=== PATIENT | male | born 1945 | race Caucasian/White ===

== ENCOUNTER 2021-08-05 07:58 | Emergency (ER) | payer OTHER ==
--- OUTSIDE RECORDS SUMMARY | 2021-08-05 08:05 | XMS REPORT | Continuity of Care Document ---
:1945 Author Organization [facility] t Address [address] [place] [address] Care Team Providers Name Role Phone Benjie ORTIZ Primary Care Physician Jocelyne ORTIZ Attending Clinician Hailee SPENCER Attending Clinician Unavailable Catherine ORTIZ M Attending Clinician Wilian OLVERA MD Attending Clinician Gray ORTIZ Attending Clinician Anamaria GALAN Attending Clinician Unavailable Angelia ORTIZ S Attending Clinician Donovan_S_MELVA Attending Clinician Unavailable Mayra_A_AH Attending Clinician Unavailable Wilian OLVERA MD Admitting Clinician WILIAN Admitting Clinician Unavailable Donovan_S_MELVA Admitting Clinician Unavailable Mayra_A_AH Admitting Clinician Unavailable Payers Payer Name Policy Type Policy Number Effective Date Expiration Date [facility] [place] - [id number] 2019 [place] 00:00:00 (MEDICARE REPLACEMENT/ADVANT AGE - HMO) Problems Condition Condition Condition Status Onset Resolution Last Treating Co mments Source Name Details Category Date Date Treatment Clinician Date Periprosth Periprosth Disease Active U vidya etic etic 1-09 ity of fracture fracture 00:00: [place] around around 00 Medical internal 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, Leukemia, 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 00 e Obese Obese Problem Active [place] 4-20 Family 00:00: Practic 00 e Body mass Body Mass Problem Active Rafael camara index 30+ Index 30+ 4-20 Fami ly - obesity - Obesity 00:00: Prac tic 00 e Essential Essential Problem Active Rafael camara hypertensi Hypertensi 4-20 Fa karne on on 00:00: Practic 00 e Chronic Chronic Problem Active Dorothy atrial Atrial 4-20 Family fibrillati Fibrillati 00:00: Pr actic on on 00 e No known No known Disease Unive rs active active ity of problems problems [facility] Allergies, Adverse Reactions, Alerts Allergy Allergy Status Severity Reaction(s) Onset Inactive Treating Comm ents Source Name Type Date Date Clinician Stanley Allergy Active [place] to Family substanc Practic e e NO KNOWN Drug Active Univers ALLERGIE Class ity of S [facility] Social History Social Habit Start Date Stop Date Quantity Comments Source Exposure to Not sure [facility] SARS-CoV-2 (event) Medica l [place] Tobacco use and 2021-07-07 2021-07-07 Never used [facility] exposure 00:00:00 00:00:00 [facility] Sex Ass[birth year] At [birth year] [facility] 00:00:00 00:00:00 [facility] Smoking Status Start Date Stop Date Source Never Smoker [place] [facility] P franck Unknown if ever smoked [facility] Medications Ordered Filled Start Stop Current Ordering Indication Dosage Frequency Signature Comments Components Source Medication Medication Date Date Medication? Clinician (SIG) Name Name tamsulosin Yes .8mg 0.8 mg, Univ ers (FLOMAX) 07-27 Oral, ity of capsule 0.8 15:00: DAILY, [place] 00 First dose Medical (after Branch last modificati on) on 07/27/21 at 0900, Until Discontinu ed, Routine mirtazapine Yes 7.5mg 7.5 mg, Un marine (REMERON) 07-27 Oral, QHS, ity of tablet 7.5 03:00: First dose [place] mg 00 (after Medical last Branch modificati on) on Thu07/26/21 at 2100, Until Discontinu ed, Routine tamsulosin Yes [id number] .8mg Take 2 Univers 0.4 mg 24 1-29 capsules ity of hr capsule 00:00: by mouth [place] 00 daily. Medical Branch risperiDONE 0 Yes .25mg Take 1 Uni vers 0.25 mg -29 tablet by ity of tablet 00:00: mouth [place] 00 every Medical morning. Branch tamsulosin Yes [id number] .8mg Take 2 Univers 0.4 mg 24 -29 capsules ity of hr capsule 00:00: by mouth [place] 00 daily. Medical Branch risperiDONE 0 Yes .25mg Take 1 Uni vers 0.25 mg 1-29 tablet by ity of tablet 00:00: mouth [place] 00 every Medical morning. Branch tamsulosin Yes [id number] .8mg Take 2 Univers 0.4 mg 24 -29 capsules ity of hr capsule 00:00: by mouth [place] 00 daily. Medical Branch risperiDONE Yes .25mg Take 1 Uni vers 0.25 mg -29 tablet by ity of tablet 00:00: mouth [place] 00 every Medical morning. Branch ciprofloxac 2021- Yes 500mg 500 mg, U nivers in HCl 07-27 Oral, ity of (CIPRO) 00:00: 11:59 Q12HA2, 7 [place] tablet 500 00 :00 doses, Medical mg First dose Branch on Thu07/26/21 at 1800, Last dose on Thu07/29/21 at 1800, YAMILKA
Re ason for Anti-Infec tive: Documented Infection< br>Documen judy Infection Site: Urine
D uration of Therapy: 7 days atenoloL 25 2021- No 100mg Take 100 Univers mg tablet 07-26 mg by ity of 15:49: 00:00 mouth at [place] 57 :00 bedtime. Medical Branch mirtazapine 2021- No 15mg 15 mg, Uni vers (REMERON) 07-26 Oral, QHS, ity of tablet 15 03:00: 18:30 First dose [place] mg 00 :08 on [place] Medical 07/25/21 at Branch 2100, Until Discontinu ed, Routine furosemide Yes [id number] 40mg Take 1 Univers 40 mg 1-28 tablet by ity of tablet 00:00: mouth 2 [place] 00 (two) Medical times Branch daily. rivaroxaban Yes [id number] 20mg Take 1 Univ ers 20 mg 1-28 tablet by ity of tablet 00:00: mouth [place] 00 every Medical evening. Branch Indication s: atrial fibrillati on atorvastati Yes [id number] 40mg Take 1 Univers n 40 mg 1-28 tablet by ity of tablet 00:00: mouth at [place] 00 bedtime. Medical Branch finasteride Yes [id number] 5mg Take 1 Univers 5 mg tablet 1-28 tablet by ity of 00:00: mouth [place] 00 daily. Medical Branch metoprolol Yes [id number] 25mg Take 1 Univers succinate 1-28 tablet by ity o f XL 25 mg 24 00:00: mouth [place] hr tablet 00 daily with Medi sree breakfast. Branch lisinopriL Yes [id number] 40mg Take 1 Univers 40 mg 1-28 tablet by ity of tablet 00:00: mouth [place] 00 daily. Medical Branch polyethylen Yes [id number] 17g Take 1 Univers e glycol 1-28 Packet by ity of 3350 17 00:00: mouth 2 [place] gram powder 00 (two) Medical times Branch daily. sennosides Yes [id number] 17.2mg Take 17.2 Univers 17.2 mg Tab 1-28 mg by ity of 00:00: mouth 2 [place] 00 (two) Medical times Branch daily. ciprofloxac Yes 500mg Take 1 Uni vers in HCl 500 1-28 tablet by ity of mg tablet 00:00: mouth [place] 00 every 12 Medical (twelve) Branch hours. mirtazapine Yes [id number] 7.5mg Take 1 Univers 7.5 mg 1-28 tablet by ity of tablet 00:00: mouth at [place] 00 bedtime. Medical Branch risperiDONE Yes .5mg Take 2 Univ ers 0.25 mg 1-28 tablets by ity of tablet 00:00: mouth at [place] 00 bedtime. Medical Branch furosemide Yes [id number] 40mg Take 1 Univers 40 mg 1-28 tablet by ity of tablet 00:00: mouth 2 [place] 00 (two) Medical times Branch daily. rivaroxaban Yes [id number] 20mg Take 1 Univ ers 20 mg 1-28 tablet by ity of tablet 00:00: mouth [place] 00 every Medical evening. Branch Indication s: atrial fibrillati on atorvastati 0 Yes [id number] 40mg Take 1 Univers n 40 mg 1-28 tablet by ity of tablet 00:00: mouth at [place] 00 bedtime. Medical Branch finasteride 0 Yes [id number] 5mg Take 1 Univers 5 mg tablet 1-28 tablet by ity of 00:00: mouth [place] 00 daily. Medical Branch metoprolol Yes [id number] 25mg Take 1 Univers succinate 1-28 tablet by ity o f XL 25 mg 24 00:00: mouth [place] hr tablet 00 daily with Medi sree breakfast. Branch lisinopriL Yes [id number] 40mg Take 1 Univers 40 mg 1-28 tablet by ity of tablet 00:00: mouth [place] 00 daily. Medical Branch polyethylen Yes [id number] 17g Take 1 Univers e glycol 1-28 Packet by ity of 3350 17 00:00: mouth 2 [place] gram powder 00 (two) Medical times Branch daily. sennosides Yes [id number] 17.2mg Take 17.2 Univers 17.2 mg Tab 1-28 mg by ity of 00:00: mouth 2 [place] 00 (two) Medical times Branch daily. ciprofloxac 0 Yes 500mg Take 1 Uni vers in HCl 500 1-28 tablet by ity of mg tablet 00:00: mouth [place] 00 every 12 Medical (twelve) Branch hours. mirtazapine 0 Yes [id number] 7.5mg Take 1 Univers 7.5 mg 1-28 tablet by ity of tablet 00:00: mouth at [place] 00 bedtime. Medical Branch risperiDONE 0 Yes .5mg Take 2 Univ ers 0.25 mg 1-28 tablets by ity of tablet 00:00: mouth at [place] 00 bedtime. Medical Branch furosemide 0 Yes [id number] 40mg Take 1 Univers 40 mg 1-28 tablet by ity of tablet 00:00: mouth 2 [place] 00 (two) Medical times Branch daily. rivaroxaban Yes 1358 20mg Take 1 Univ ers 20 mg 1-28 tablet by ity of tablet 00:00: mouth [place] 00 every Medical evening. Branch Indication s: atrial fibrillati on atorvastati 0 Yes [id number] 40mg Take 1 Univers n 40 mg 1-28 tablet by ity of tablet 00:00: mouth at [place] 00 bedtime. Medical Branch finasteride 0 Yes [id number] 5mg Take 1 Univers 5 mg tablet 1-28 tablet by ity of 00:00: mouth [place] 00 daily. Medical Branch metoprolol Yes [id number] 25mg Take 1 Univers succinate 1-28 tablet by ity o f XL 25 mg 24 00:00: mouth [place] hr tablet 00 daily with Medi sree breakfast. Branch lisinopriL Yes [id number] 40mg Take 1 Univers 40 mg 1-28 tablet by ity of tablet 00:00: mouth [place] 00 daily. Medical Branch polyethylen Yes [id number] 17g Take 1 Univers e glycol 1-28 Packet by ity of 3350 17 00:00: mouth 2 [place] gram powder 00 (two) Medical times Branch daily. sennosides Yes [id number] 17.2mg Take 17.2 Univers 17.2 mg Tab 1-28 mg by ity of 00:00: mouth 2 [place] 00 (two) Medical times Branch daily. ciprofloxac 0 Yes 500mg Take 1 Uni vers in HCl 500 1-28 tablet by ity of mg tablet 00:00: mouth [place] 00 every 12 Medical (twelve) Branch hours. mirtazapine 0 Yes [id number] 7.5mg Take 1 Univers 7.5 mg 1-28 tablet by ity of tablet 00:00: mouth at [place] 00 bedtime. Medical Branch risperiDONE 0 Yes .5mg Take 2 Univ ers 0.25 mg 1-28 tablets by ity of tablet 00:00: mouth at [place] 00 bedtime. Medical Branch acetaminoph 0 2022- Yes [id number] 650mg Take 2 Univers en 325 mg 1-28 -29 tablets by ity of tablet 00:00: 05:59 mouth 3 [place] 00 :00 (three) Medical times Branch daily. acetaminoph 2022- Yes [id number] 650mg Take 2 Univers en 325 mg 07-26 tablets by ity of tablet 00:00: 05:59 mouth 3 [place] 00 :00 (three) Medical times Branch daily. acetaminoph 2022- Yes [id number] 650mg Take 2 Univers en 325 mg 07-26 tablets by ity of tablet 00:00: 05:59 mouth 3 [place] 00 :00 (three) Medical times Branch daily. risperiDONE Yes .25mg [[facility] Start] ity of tablet 0.25 15:00: Name: [place] [id number] risperiDON [facility] (RISPERDAL ) tablet 0.25 mg Signed Summary: 0.25 mg, Oral, QAM, First dose (after last modificati on) on Thu07/25/21 at 0900, Until Discontinu ed, Routine [Order 1 End] [Order 2 Start] Name: risperiDON E (RISPERDAL ) tablet 0.5 mg Signed Summary: 0.5 mg, Oral, QHS, First dose (after last modificati on) on May[place] 07/25/21 at 2100, Until Discontinu ed, Routine [Order 2 End] mirtazapine 2021- No 15mg 15 mg, Uni vers (REMERON) 07-25 Oral, QHS, ity of tablet 15 03:00: 14:55 First dose [place] mg 00 :57 on Thu07/24/21 at Branch 2100, Until Discontinu ed, Routine piperacilli 2021- No 3.375g 3.375 g, Univers n-tazobacta 07-24 IV ity of m (ZOSYN) 00:30: 18:46 Piggyback, [place] 3.375 g in 00 :38 Q6H ABX, Medic al NaCl 0.9% 20 doses, Branc h (NS) 100 mL First dose MINI-BAG on Thu07/23/21 at 1830, Last dose on Thu07/28/21 at 1230, Administer over 30 Minutes, 100 mL
Reas on for Anti-Infec tive: Empiric Therapy for Suspected Infection< br>Empiric Therapy Site: Urine
D uration of therapy: 7 days risperiDONE 2021- No .5mg Unive rs (RISPERDAL) 07-17 ity of tablet 0.5 15:00: 14:55 [place] mg 00 :57 [facility] lactated No 1000mL at 250 Univ ers ringers IV 07-16 mL/hr, ity of infusion 18:30: 19:44 1,000 mL, [place] as 1,000 mL 00 :00 Intravenou Medic al s, ONCE, 1 Branch dose, On [facility] 07/16/21 at 1230, Routine haloperidol No 2mg 2 mg, Slow Univers lactate 07-16 IV Push, ity of (HALDOL) 06:23: 06:33 ONCE, 1 [place] injection 2 00 :00 dose, On Medi sree mg [facility] 07/16/21 at 0030, YAMILKA finasteride Yes 5mg 5 mg, Unive rs (PROSCAR) 07-15 Oral, ity of tablet 5 mg 18:00: DAILY, [place] 00 First dose Medical on [facility] 07/15/21 at 1200, Until Discontinu ed, Routine traMADoL Yes 50mg 50 mg, Univers (ULTRAM) 17 Oral, Q8H, ity o f tablet 50 12:30: First dose [place] mg 00 on [facility] 07/15/21 at Branch 0630, Until Discontinu ed, Routine tamsulosin No .4mg 0.4 mg, Uni vers (FLOMAX) 07-14 Oral, ity of capsule 0.4 17:15: 18:41 DAILY, [place] mg 00 :46 First dose Medical on [facility] 07/14/21 at 1115, Until Discontinu ed, Routine KCL 2021- No 40meq 40 mEq, Univers (KLOR-CON 07-14 Oral, ity of M20) tablet 14:00: 14:46 ONCE, 1 [place] 40 mEq 00 :00 dose, On [facility] 07/14/21 at 0800, Routine magnesium 2021- No 2g 2 g, IV Univ ers sulfate in 07-14 Piggyback, it y of water 2 14:00: 14:45 ONCE, 1 [place] gram/50 mL 00 :00 dose, On Medic al (4 %) Sun Branch infusion 2 07/14/21 at g 0800, Routine magnesium 2021- No 800mg 800 mg, Uni vers oxide 07-13 Oral, BID, ity of (MAG-OX 14:00: 02:03 2 doses, [place] 400) tablet 00 :00 First dose Me dical 800 mg on Sat Branch 07/13/21 at 0800, Last dose on [facility] 07/13/21 at 1999, Routine KCL 2021-2021- No 40meq 40 mEq, Univers (KLOR-CON 07-13 Oral, ity of M20) tablet 14:00: 14:42 ONCE, 1 [place] 40 mEq 00 :00 dose, On Medical Sat Branch 07/13/21 at 0800, Routine QUEtiapine 2021- No 25mg 25 mg, Univ ers (SEROQUEL) 07-13 Oral, QHS, it y of tablet 25 03:00: 16:26 First dose [place] mg 00 :28 on Fri Medical 07/12/21 at Branch 2100, Until Discontinu ed, Routine polyethylen Yes 17g 17 g, Unive rs e glycol 1-15 Oral, BID, ity o f 3350 powder 02:00: First dose [place] 17 g 00 (after Medical last Branch modificati on) on Thu07/12/21 at 1999, Until Discontinu ed, Routine sennosides Yes 17.2mg 17.2 mg, U nivers (SENOKOT) 1-15 Oral, BID, ity of tablet 17.2 02:00: First dose [place] mg 00 (after Medical last Branch modificati on) on Thu07/12/21 at 1999, Until Discontinu ed, Routine KCL 2021- No 40meq 40 mEq, Univers (KLOR-CON 07-12 Oral, ity of M20) tablet 14:15: 15:17 ONCE, 1 [place] 40 mEq 00 :00 dose, On Medical [facility] 07/12/21 at 0815, Routine metoprolol 2021-0 Yes 25mg 25 mg, Unive rs succinate 1-14 Oral, QAM ity o f XL (TOPROL 14:00: WITH [place] XL) tablet 00 BREAKFAST, Med ical 25 mg First dose Branch on Thu07/12/21 at 0800, Until Discontinu ed, Routine metoprolol 2021-0 Yes 25mg 25 mg, Unive rs succinate 1-14 Oral, QAM ity o f XL (TOPROL 14:00: WITH [place] XL) tablet 00 BREAKFAST, Med ical 25 mg First dose Branch on Thu07/12/21 at 0800, Until Discontinu ed, Routine acetaminoph 2021-0 Yes 650mg 650 mg, Un marine en 14 Oral, TID, ity of (TYLENOL) 02:00: First dose [place] tablet 650 00 (after Medical mg last Branch modificati on) on [facility] 07/11/21 at 2000, Until Discontinu ed, Routine sennosides 2021-0 2021- No 8.6mg 8.6 mg, Un marine (SENOKOT) 14 -14 Oral, BID, ity of tablet 8.6 02:00: 14:50 First dose [place] mg 00 :37 on [facility] 07/11/21 at Branch 2000, Until Discontinu ed, Routine rivaroxaban 2021-0 Yes 20mg 20 mg, Univ ers (XARELTO) 1-13 Oral, QPM, ity of tablet 20 23:00: First dose [place] mg 00 on [facility] 07/11/21 at Branch 1700, Until Discontinu ed, Routine rivaroxaban 2021-0 Yes 20mg 20 mg, Univ ers (XARELTO) 1-13 Oral, QPM, ity of tablet 20 23:00: First dose [place] mg 00 on [facility] 07/11/21 at Branch 1700, Until Discontinu ed, Routine atorvastati 2021-0 Yes 40mg 40 mg, Univ ers n (LIPITOR) 1-13 Oral, QHS, it y of tablet 40 03:00: First dose [place] mg 00 on [facility] 07/10/21 at Branch 2100, Until Discontinu ed, Routine atorvastati 2022-0 Yes 40mg 40 mg, Univ ers n (LIPITOR) 1-13 Oral, QHS, it y of tablet 40 03:00: First dose [place] mg 00 on Thu Medical 07/10/21 at Branch 2100, Until Discontinu ed, Routine furosemide Yes 40mg 40 mg, Unive rs (LASIX) 1-13 Oral, BID, ity of tablet 40 02:00: First dose [place] mg 00 (after Medical last Branch modificati on) on Thu07/10/21 at 2000, Until Discontinu ed, Routine furosemide 0 Yes 40mg 40 mg, Unive rs (LASIX) 1-13 Oral, BID, ity of tablet 40 02:00: First dose [place] mg 00 (after Medical last Branch modificati on) on Thu07/10/21 at 2000, Until Discontinu ed, Routine morpHINE Yes 2mg 2 mg, Slow Uni vers injection 2 12 IV Push, ity of mg 21:00: Q6HPRN, [place] 31 Starting Medical on Thu Branch 07/10/21 at 1500, Until Discontinu ed, Routine, For pain unrelieved by oral medication s, or if patient is unable to tolerate oral pain medication . ceFAZolin 2021- No 2000mg 2 g (2,000 Univers in 0.9% 07-10 mg), IV ity of sodium 19:30: 14:37 [place]gyback, [place] chloride 00 :00 Q8H ABX, 3 Medic al (ANCEF) 2 doses, Branch gram/100 mL First dose RTU 2 g on Thu07/10/21 at 1330, Last dose on Thu07/11/21 at 0530, Administer over 30 Minutes
Reason for Anti-Infec tive: Surgical Prophylaxi s
Rodriguez rgical Prophylaxi s: Orthopaedi c
Durat ion of therapy: within 24 hours of surgery FENTanyl PF 2021-2021- No 25ug 25 mcg, Un marine (SUBLIMAZE 07-10 Slow IV ity o f (PF)) 18:20: 19:50 Push, [place] injection 48 :28 Q5MIN PRN, Medi sree 25 mcg 4 doses, Branch Starting on Thu07/10/21 at 1220, Until Thu07/10/21 at 1350, Routine, Pain (scale 4-6), PACU atenoloL 25 0 Yes 100mg Take 100 U nivers mg tablet 1-12 mg by ity of 13:50: mouth at [place] 28 bedtime. Medical Branch sulfur 2021- No [id number] 5mL 5 mL, Univ ers hexafluorid 07-08 Intravenou i ty of e microsphr 18:15: 14:43 s, ONCE, 1 [place] (LUMASON) 00 :00 dose, On Medica l injection 5 [facility] Branch mL 07/08/21 at 1215, Routine
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 approving Restricted medication : PARUL MUSE lisinopriL 0 Yes 40mg 40 mg, Unive rs (PRINIVIL,Z 1-10 Oral, ity of ESTRIL) 15:00: DAILY, [place] tablet 40 00 First dose Medi sree mg on Mon Branch 07/08/21 at 0900, Until Discontinu ed, Routine lisinopriL 0 Yes 40mg 40 mg, Unive rs (PRINIVIL,Z 1-10 Oral, ity of ESTRIL) 15:00: DAILY, [place] tablet 40 00 First dose Medi sree mg on [facility] Branch 07/08/21 at 0900, Until Discontinu ed, Routine atenoloL 2021- No 100mg 100 mg, Univ ers (TENORMIN) 07-08-13 Oral, QHS, it y of tablet 100 03:15: 19:25 First dose [place] mg 00 :33 (after Medical last Branch modificati on) on 07/07/21 at 2115, Until Discontinu ed, Routine spironolact 0 Yes 25mg 25 mg, Univ ers one 1-09 Oral, ity of (ALDACTONE) 15:00: DAILY, [place] tablet 25 00 First dose Medi sree mg on [place] [facility] 07/07/21 at 0900, Until Discontinu ed, Routine spironolact 0 Yes 25mg 25 mg, Univ ers one 1-09 Oral, ity of (ALDACTONE) 15:00: DAILY, [place] tablet 25 00 First dose Medi sree mg on [place] [facility] 07/07/21 at 0900, Until Discontinu ed, Routine amLODIPine 2021- No 2.5mg 2.5 mg, Un marine (NORVASC) 07-07 Oral, ity of tablet 2.5 15:00: 20:47 DAILY, [place] mg 00 :28 First dose Medical on [place] Branch 07/07/21 at 0900, Until Discontinu ed, Routine sennosides- Yes 1{tbl} 1 tablet, [facility] [place] [facility] docusate 07-07 Oral, BID, ity o f sodium 14:00: First dose [place] (SENOKOT-S) 00 on Sun Medica l 8.6-50 mg 07/07/21 at Branc h per tablet 0800, 1 tablet Until Discontinu ed, Routine sennosides- 2021- No 1{tbl} 1 tablet, Univers docusate 07-07 Oral, BID, ity of sodium 14:00: 22:52 First dose [place] (SENOKOT-S) 00 :22 on Sun Medica l 8.6-50 mg 07/07/21 at Branc h per tablet 0800, 1 tablet Until Discontinu ed, Routine enoxaparin 2021- No 30mg 30 mg, Univ ers (LOVENOX) 07-07 Subcutaneo ity of injection 14:00: 20:25 us, Q12H, [place] 30 mg 00 :49 56 doses, Medical First dose Branch on 07/07/21 at 0800, Last dose on 08/03/21 at 2000, Routine furosemide 2021- No 20mg 20 mg, Univ ers (LASIX) 07-07 Oral, BID, ity o f tablet 20 14:00: 21:12 First dose [place] mg 00 :38 on Sun Medical 07/07/21 at Branch 0800, Until Discontinu ed, Routine HYDROcodone Yes 1{tbl} 1 tablet, [facility] Oral, ity of hen (NORCO 11:57: Q4HPRN, [place] 5) 5-325 mg 33 Starting Medi sree tablet 1 on Sun Branch tablet 07/07/21 at 0557, Until Discontinu ed, Routine, Pain (scale 7-10) HYDROcodone 2021-0 Yes 1{tbl} 1 tablet, Univers -acetaminop 07-07 Oral, ity of hen (NORCO 11:57: Q4HPRN, [place] 5) 5-325 mg 33 Starting Medi sree tablet 1 on [place] Branch tablet 07/07/21 at 0557, Until Discontinu ed, Routine, Pain (scale 7-10) traMADoL 2021-0 Yes 50mg 50 mg, Univers (ULTRAM) 07-07 Oral, ity of tablet 50 11:57: Q6HPRN, [place] mg 31 Starting Medical on Sun Branch 07/07/21 at 0557, Until Discontinu ed, Routine, Pain (scale 4-6) traMADoL 2021-0 2021- No 50mg 50 mg, Univer s (ULTRAM) 07-07 Oral, ity of tablet 50 11:57: 12:27 Q6HPRN, [place] mg 31 :24 Starting Medical on [place] Branch 07/07/21 at 0557, Until 07/15/21 at 0627, Routine, Pain (scale 4-6) acetaminoph 2021-0 Yes 650mg 650 mg, Un marine en 07-07 Oral, ity of (TYLENOL) 11:57: Q6HPRN, [place] tablet 650 25 Starting Medic al mg on [place] [facility] 07/07/21 at 0557, Until Discontinu ed, Routine, Pain (scale 1-3), Pain Scale 1-3 Or Headache acetaminoph 2021-0 2021- No 650mg 650 mg, U nivers en 07-07 Oral, ity of (TYLENOL) 11:57: 21:29 Q6HPRN, [place] tablet 650 25 :29 Starting Medic al mg on Sun Branch 07/07/21 at 0557, Until [place] 07/11/21 at 1529, Routine, Pain (scale 1-3), Pain Scale 1-3 Or Headache ondansetron 2021-0 Yes 4mg 4 mg, Slow Univers (ZOFRAN 07-07 IV Push, ity of (PF)) 11:57: Q6HPRN, [place] injection 4 16 Starting Medi sree mg on Sun Branch 07/07/21 at 0557, Until Discontinu ed, Routine, Nausea and Vomiting (N/V) No known No Univers medications -08 ity of 18:44: [place] 05 Medical Branch rivaroxaban 2020-06 Yes 20mg Take 20 mg Univers (XARELTO) 08-05 by mouth ity of 20 mg 00:00: at [place] tablet 00 bedtime. Medical Branch rivaroxaban 2020-06- No 20mg Take 20 mg Univers (XARELTO) 08-05- by mouth ity o f 20 mg 00:00: 00:00 at [place] tablet 00 :00 bedtime. Medical Branch quinapriL 2020-06 Yes 40mg Take 40 mg Un marine 40 mg -19 by mouth ity of tablet 00:00: daily. [place] 00 Medical Branch amLODIPine 2020-06- Yes 2.5mg Take 2.5 U nivers 2.5 mg 1-19 02-18 mg by ity of tablet 00:00: 05:59 mouth [place] 00 :00 daily. Medical Branch spironolact 2020-06- Yes 25mg Take 25 mg Univers one 25 mg -19 -18 by mouth ity o f tablet 00:00: 05:59 daily. [place] 00 :00 Medical Branch amLODIPine 2020-06- Yes 2.5mg Take 2.5 U nivers 2.5 mg -19 02-18 mg by ity of tablet 00:00: 05:59 mouth [place] 00 :00 daily. Medical Branch spironolact 2020-06- Yes 25mg Take 25 mg Univers one 25 mg 19 -18 by mouth ity o f tablet 00:00: 05:59 daily. [place] 00 :00 Medical Branch amLODIPine 2020-06- Yes 2.5mg Take 2.5 U nivers 2.5 mg 1-19 02-18 mg by ity of tablet 00:00: 05:59 mouth [place] 00 :00 daily. Medical Branch spironolact 2020-06- Yes 25mg Take 25 mg Univers one 25 mg -19 -18 by mouth ity o f tablet 00:00: 05:59 daily. [place] 00 :00 Medical Branch amLODIPine 2020-06- Yes 2.5mg Take 2.5 U nivers 2.5 mg 1-19 02-18 mg by ity of tablet 00:00: 05:59 mouth [place] 00 :00 daily. Medical Branch spironolact 2020-06- Yes 25mg Take 25 mg Univers one 25 mg 07-17 by mouth ity o f tablet 00:00: 05:59 daily. [place] 00 :00 Medical Branch quinapriL 2020-06- No 40mg Take 40 mg U nivers 40 mg 07-17 by mouth ity of tablet 00:00: 00:00 daily. [place] 00 :00 Medical Branch furosemide Yes 20mg Take 20 mg U nivers 40 mg 02-21 by mouth 2 ity of tablet 00:00: (two) [place] 00 times Medical daily. Branch furosemide 2021- No 20mg Take 20 mg Univers 40 mg 02-21 by mouth 2 ity of tablet 00:00: 00:00 (two) [place] 00 :00 times Medical daily. Branch amlodipine amlodipine No [address] [facility] 10 mg 10 mg 10 mg Family tablet Take tablet Take tablet Practic 1 tablet 1 tablet Take 1 e every day every day tablet by oral by oral every day route. route. by oral route. atenolol 50 atenolol 50 No 1 Q1D atenolol [place] mg tablet mg tablet 50 mg Fami ly Take 1 Take 1 tablet Practic tablet tablet Take 1 e every day every day tablet by oral by oral every day route. route. by oral route. fluticasone fluticasone No 1spray( Q1D fluticason [place] propionate propionate s) e Fam todd 50 50 propionate Practic mcg/actuati mcg/actuati 50 e on nasal on nasal mcg/actuat spray,suspe spray,suspe ion nasal nsion Guy nsion Guy spray,susp 1 spray 1 spray ension every day every day Guy 1 by by spray intranasal intranasal every day route. route. by intranasal route. quinapril quinapril No [address] [facility] 40 mg 40 mg 40 mg Family tablet Take tablet Take tablet Practic 1 tablet 1 tablet Take 1 e every day every day tablet by oral by oral every day route. route. by oral route. spironolact spironolact No 1 Q1D spironolac [place] one 25 mg one 25 mg tone 25 mg Family tablet Take tablet Take tablet Practic 1 tablet 1 tablet Take 1 e every day every day tablet by oral by oral every day route. route. by oral route. warfarin 1 warfarin 1 No 1 Q1D warfarin 1 [place] mg tablet mg tablet mg tablet Family Take 1 Take 1 Take 1 Practic tablet tablet tablet e every day every day every day by oral by oral by oral route. route. route. warfarin 3 warfarin 3 No 1 Q1D warfarin 3 [place] mg tablet mg tablet mg tablet Family Take 1 Take 1 Take 1 Practic tablet tablet tablet e every day every day every day by oral by oral by oral route. route. route. Immunizations Ordered Filled Immunization Date Status Comments [facility] e Immunization Name Name Influenza High Dose 2020-02-29 Completed Unive rsity of 00:00:00 [facility] Influenza High Dose 2020-02-29 Completed Unive rsity of 00:00:00 [facility] Influenza High Dose 2020-02-29 Completed Unive rsity of 00:00:00 [facility] Influenza High Dose 2020-02-29 Completed Unive rsity of 00:00:00 [facility] Influenza Virus 2019-04-29 Completed Universit y of Vaccine 00:00:00 [facility] Influenza Virus 2019-04-29 Completed Universit y of Vaccine 00:00:00 [facility] Influenza Virus 2019-04-29 Completed Universit y of Vaccine 00:00:00 [facility] Influenza Virus 2019-04-29 Completed Universit y of Vaccine 00:00:00 [facility] influenza, influenza, 2018-06-29 Completed Dorothy Mittal injectable, injectable, 00:00:00 Practice quadrivalent quadrivalent TDAP 2018-03-19 Completed University of 00:00:00 [facility] TDAP 2018-03-19 Completed University of 00:00:00 [facility] TDAP 2018-03-19 Completed University of 00:00:00 [facility] TDAP 2018-03-19 Completed University of 00:00:00 [facility] Influenza High Dose 2017-04-09 Completed Unive rsity of 00:00:00 [facility] Influenza High Dose 2017-04-09 Completed Unive rsity of 00:00:00 [facility] Influenza High Dose 2017-04-09 Completed Unive rsity of 00:00:00 [facility] Influenza High Dose 2017-04-09 Completed Unive rsity of 00:00:00 [facility] Influenza High Dose 2015-05-23 Completed Unive rsity of 00:00:00 [facility] Pneumococcal 2015-05-23 Completed University o f Polysaccharide, 00:00:00 [place] [facility] PPSV23 (PNEUMOVAX) Branch Influenza High Dose 2015-05-23 Completed Unive rsity of 00:00:00 [facility] Branch Pneumococcal 2015-05-23 Completed University o f Polysaccharide, 00:00:00 [place] [facility] PPSV23 (PNEUMOVAX) Branch Influenza High Dose 2015-05-23 Completed Unive rsity of 00:00:00 [facility] Pneumococcal 2015-05-23 Completed University o f Polysaccharide, 00:00:00 [place] [facility] PPSV23 (PNEUMOVAX) Branch Influenza High Dose 2015-05-23 Completed Unive rsity of 00:00:00 [facility] Pneumococcal 2015-05-23 Completed University o f Polysaccharide, 00:00:00 [place] [facility] PPSV23 (PNEUMOVAX) Branch Vital Signs Vital Name Observation Time Observation Value Comments Source Systolic blood 2021-07-26 21:16:00 115 mm[Hg] Univer sity of pressure [facility] Diastolic blood 2021-07-26 21:16:00 76 mm[Hg] Unive rsity of [facility] Heart rate 2021-07-26 21:16:00 94 /min [facility] Body temperature 2021-07-26 21:16:00 35.83 Gladys [facility] Oxygen saturation in 2021-07-26 21:16:00 97 /min [facility] Arterial blood by [facility] Pulse oximetry Branch Respiratory rate 2021-07-26 13:43:00 16 /min [facility] Body weight 2021-07-25 19:00:00 104 kg [facility] BMI 2021-07-25 19:00:00 27.91 kg/m2 [facility] Body height 2021-07-07 14:31:00 193 cm [facility] Systolic blood 2021-07-10 13:14:00 151 mm[Hg] Univer sity of pressure [facility] Diastolic blood 2021-07-10 13:14:00 101 mm[Hg] Unive rsity of pressure [facility] Heart rate 2021-07-10 13:14:00 75 /min [facility] Body temperature 2021-07-10 13:14:00 36.06 Gladys [facility] Respiratory rate 2021-07-10 13:14:00 18 /min [facility] Oxygen saturation in 2021-07-10 13:14:00 95 /min University of Arterial blood by [facility] Pulse oximetry Branch Body height 2021-07-07 14:31:00 193 cm [facility] Body weight 2021-07-07 14:31:00 110 kg [facility] BMI 2021-07-07 14:31:00 29.52 kg/m2 [facility] Systolic blood 2021-07-07 08:00:00 154 mm[Hg] [facility] Diastolic blood 2021-07-07 08:00:00 83 mm[Hg] [facility] Heart rate 2021-07-07 08:00:00 64 /min [facility] Respiratory rate 2021-07-07 08:00:00 25 /min [facility] Oxygen saturation in 2021-07-07 08:00:00 95 /min University of Arterial blood by [facility] Pulse oximetry Branch Body temperature 2021-07-07 00:14:00 36.17 Gladys [facility] Body weight 2021-07-07 00:14:00 113.399 kg [facility] Procedures Procedure Date / Time Performing Clinician Source Performed COVID-19 (ID NOW RAPID 2021-07-26 21:48:00 Anderson Moreno [facility] TESTING) Medical Branch LAB ONLY COVID 2021-07-26 21:48:00 Anderson Moreno [facility] INTERPRETATION [facility] Branch MAGNESIUM 2021-07-24 07:37:00 Jackie Cisneros [facility] BASIC METABOLIC PANEL 2021-07-24 07:37:00 Jackie Cisneros [facility] (NA, K, CL, CO2, GLUCOSE, Medica l Branch BUN, CREATININE, CA) CBC WITH DIFF 2021-07-24 07:37:00 Jackie Cinseros [facility] BASIC METABOLIC PANEL 2021-07-23 23:07:00 [facility] (NA, K, CL, CO2, GLUCOSE, Medica l Branch BUN, CREATININE, CA) URINE CULTURE 2021-07-23 22:24:00 [facility]FF 2021-07-23 20:46:00 Blayne [facility] URINALYSIS 2021-07-23 18:47:00 Blayne [facility] MAGNESIUM 2021-07-22 11:39:00 Blayne [facility] BASIC METABOLIC PANEL 2021-07-22 11:39:00 Blayne [facility] [place] (NA, K, CL, CO2, GLUCOSE, Medica l Branch BUN, CREATININE, CA) CBC WITHOUT DIFF 2021-07-22 11:39:00 Blayne [facility] MAGNESIUM 2021-07-17 11:44:00 Blayne [facility] BASIC METABOLIC PANEL 2021-07-17 11:44:00 Blayne [facility] [place] (NA, K, CL, CO2, GLUCOSE, Medica l Branch BUN, CREATININE, CA) CBC WITHOUT DIFF 2021-07-17 11:44:00 Blayne [facility] MAGNESIUM 2021-07-15 11:52:00 Blayne [facility] BASIC METABOLIC PANEL 2021-07-15 11:52:00 Jackie Cisneros [facility] (NA, K, CL, CO2, GLUCOSE, Medica l Branch BUN, CREATININE, CA) CBC WITHOUT DIFF 2021-07-15 11:52:00 Blayne [facility] MAGNESIUM 2021-07-14 12:30:[address] [facility] BASIC METABOLIC PANEL 2021-07-14 12:30:00 Víctor [facility] (NA, K, CL, CO2, GLUCOSE, Medica l Branch BUN, CREATININE, CA) MAGNESIUM 2021-07-13 11:32:[address] [facility] BASIC METABOLIC PANEL 2021-07-13 11:32:00 Víctor [facility] (NA, K, CL, CO2, GLUCOSE, Medica l Branch BUN, CREATININE, CA) CBC WITH DIFF 2021-07-13 11:32:00 Renee, [facility] MAGNESIUM 2021 11:20:[address] [facility] BASIC METABOLIC PANEL 2021 11:20:00 [facility] (NA, K, CL, CO2, GLUCOSE, Medica l Branch BUN, CREATININE, CA) CBC WITH DIFF 2021 11:20:[address] [facility] CBC WITH DIFF 2021 00:27:00 [facility]OLIC PANEL 2021-07-10 23:55:00 [facility] ([facility], K, CL, CO2, GLUCOSE, Medica l Branch BUN, CREATININE, CA) BASIC METABOLIC PANEL 2021-07-10 23:55:00 Lamberto [facility] (NA, K, CL, CO2, GLUCOSE, Medica l Branch BUN, CREATININE, CA) XR CHEST 1 VW 2021-07-10 20:57:00 [facility]W 2021-07-10 20:57:00 Lamberto [facility] XR FEMUR 2 VW LEFT 2021-07-10 19:13:00 Maday [facility] XR FEMUR 2 VW LEFT 2021-07-10 19:13:00 Maday [facility] FL TIME OR 2021-07-10 17:47:48 Sinan Nassar [facility] (NON-REPORTABLE) Medical Branch FL TIME OR 2021-07-10 17:47:48 Sinan Nassar [facility] (NON-REPORTABLE) Medical Branch FEMUR INTRAMEDULLARY 2021-07-10 14:55:00 Zafar Cedeno [facility] NAILING Medical Branch FEMUR INTRAMEDULLARY 2021-07-10 14:55:00 Zafar Cedeno [facility] NAILING Medical Branch COVID-19 (ID NOW RAPID 2021-07-09 23:43:00 Maday [facility] TESTING) Medical Branch LAB ONLY COVID 2021-07-09 23:43:00 Maday [facility] INTERPRETATION Medical Branch COVID-19 (ID NOW RAPID 2021-07-09 23:43:[facility] LAB ONLY COVID 2021-07-09 23:43:00 Maday [facility] INTERPRETATION Medical Branch BASIC METABOLIC PANEL 2021-07-09 18:56:00 [facility] (NA, K, CL, CO2, GLUCOSE, Medica l Branch BUN, CREATININE, CA) CBC WITH DIFF 2021-07-09 18:56:00 [facility] PROTHROMBIN TIME / INR 2021-07-09 18:56:00 [facility] BASIC METABOLIC PANEL 2021-07-09 18:56:00 [facility] (NA, K, CL, CO2, GLUCOSE, Medica l Branch BUN, CREATININE, CA) CBC WITH DIFF 2021-07-09 18:56:00 [facility] PROTHROMBIN TIME / INR 2021-07-09 18:56:00 [facility] ABORH CONFIRMATION (LAB 2021-07-09 18:55:00 Enrrique Jack [facility] ONLY) Medical Branch ABORH CONFIRMATION (LAB 2021-07-09 18:55:00 Enrrique Jack [facility] ONLY) Medical Branch HB ECG ROUTINE & RHYTHM 2021-07-09 16:08:23 Hickman, [facility] [place] HB ECG ROUTINE & RHYTHM 2021-07-09 16:08:23 Hickman, Rolo [facility] HB ABO GROUPING 2021-07-09 15:30:00 Enrrique Jack [facility] HB ABO GROUPING 2021-07-09 15:30:00 [facility] TRANSTHORACIC ECHO (TTE) 2021-07-08 14:38:00 Myke Orantes [facility] COMPLETE W/ CONTRAST Medical Bra [facility] TRANSTHORACIC ECHO (TTE) 2021-07-08 14:38:00 Myke Orantes [facility] COMPLETE W/ CONTRAST Medical Bra [facility] PROTHROMBIN TIME / INR 2021-07-08 03:00:00 Thanh Mathis [facility] ACTIVATED PARTIAL 2021-07-08 03:00:00 Thanh Mathis [facility] PROTHROMBIN TIME / INR 2021-07-08 03:00:00 Thanh Mathis [facility] ACTIVATED PARTIAL 2021-07-08 03:00[facility] 2021-07-07 12:02:00 Thanh Mathis [facility] CT KNEE LEFT WO CONTRAST 2021-07-07 12:02:00 Thanh Mathis [facility] XR FEMUR 2 VW LEFT 2021-07-07 11:25:00 Thanh Mathis [facility] XR FEMUR 2 VW LEFT 2021-07-07 11:25:00 Thanh Mathis [facility] XR KNEE <3 VW BILATERAL 2021-07-07 03:15:20 Mino Galan [facility] CT HEAD WO CONTRAST 2021-07-07 01:25:52 Mino Galan [facility] XR CHEST 1 VW 2021-07-07 01:09:27 Mino Galan [facility] N-TERMINAL PRO-BNP 2021-07-07 00:52:00 Thanh Mathis [facility] N-TERMINAL PRO-BNP 2021-07-07 00:52:00 Sketchler, Thanh [facility] TROPONIN I 2021-07-07 00:52:00 Mino Galan [facility] COMP. METABOLIC PANEL 2021-07-07 00:52:00 Mino Galan [facility] ([id number]) Medical Branch CBC WITH DIFF 2021-07-07 00:52:00 Mino Galan [facility] URINALYSIS 2021-07-07 00:52:00 Mino Galan [facility] COVID-19 (ID NOW RAPID 2021-07-07 00:52:00 ale [facility] TESTING) Medical Branch EMERGENCY DEPARTMENT 2021-07-06 06:01:00 [facility]assigned, [facility] 2021-07-06 06:01:00 Doctor Unassigned, No [facility] [place] AGREEMENTS AND Name [facility] AUTHORIZATIONS PATIENT QUESTIONNAIRE 2021-07-06 06:01:00 Doctor Unassigned, No [facility] Name [facility] EMERGENCY DEPARTMENT 2021-07-06 06:01:00 Doctor Unassigned, No U niversity [facility] DOCUMENTS Name [facility] EMERGENCY SERVICES 2021-07-06 06:01:00 Doctor Unassigned, No [facility] [place] AGREEMENTS AND Name [facility] AUTHORIZATIONS Encounters Start End Encounter Admission Attending Care Care Encounter Source Date/Time Date/Time Type Type Clinicians Facility Department ID 2021-07-24 [facility] [id number] [facility] [address] 13:44:48 [id number] [place] [facility] 2021-07-30 2021-07-30 Letter KELSI Casanova [id number] Univers 00:00:00 00:00:00 (Out) Anders KRISHNAN [id number] it y of [facility] [id number] Carlos as [id number] [place] [address] Branch 2021-07-29 2021-07-29 Transition BAR Stephen [id number] Univers 00:00:00 00:00:00 of Care Ella PENDLETON [id number] it y of [id number] [id number] [facility] 403 Branch 2021-07-07 2021-07-26 Hospital Aric Alexander [id number] Univers 04:30:00 21:00:00 Encounter Zafar Cedeno [id number] ity of [facility] [id number] [facility] Anders [id number] [facility] 097 Branch 2021-07-10 2021-07-10 Surgery KELSI Cedeno [id number] Univers 09:00:00 11:53:00 Zafar KRISHNAN [id number] it y of [facility] [id number] Carlos as [id number] [facility] 103 Branch 2021-07-06 2021-07-07 Emergency X [facility] ERT [id number] Univers 18:09:00 03:18:00 [facility] 2021-07-06 2021-07-07 Emergency X [facility] ERT [id number] Univers 18:09:00 03:18:00 [facility] 2021-07-06 2021-07-07 [facility] [id number] Univers 18:09:00 03:18:00 [facility] [id number] ity [facility] [id number] [id number] [facility] 084 Branch 2021-02-26 2021-02-26 Outpatient STLMLC [facility]LMLC [id number] [facility] [place] [facility] 2020-12-24 2020-12-24 Outpatient Donovan_SJEY [facility] [address] 02:56:00 02:56:00 [id number] Family Practic e 2020-03-23 2020-03-23 Outpatient Mayra [facility] [address] 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 2019-09-20 2019-09-20 Outpatient [facility]-Shantao VFP P [address] [place] [address] 11:39:00 11:39:00 _A_AH 01549 Family Practic e Results Test Description Test Time Test Comments Results Result Comments Source BASIC METABOLIC PANEL (NA, K, CL, CO2, GLUCOSE, BUN, 2021-06 11:31:40 CREATININE, CA) Test Item Value Reference Range Interpretation Comme nts NA (test code = 8174460941) 135 mmol/L 135-145 K (test code = 3529562875) 4.3 mmol/L 3.5-5.0 CL (test code = 3293302325) 105 mmol/L 98-108 CO2 TOTAL (test code = 9299080773) 22 mmol/L 23-31 L AGAP (test code = 2559842180) 2-16 BUN (test code = 8604448859) 31 mg/dL 7-23 H GLUCOSE (test code = 9041690467) 162 mg/dL 70-110 H CREATININE (test code = 0.67 mg/dL 0.60-1.25 7657593206) CALCIUM (test code = 2379718206) 9.2 mg/dL 8.6-10.6 eGFR (test code = 4414555520) mL/min/1.73m2 DOTTIE (test code = DOTTIE) Association of Glomerular Filtration Rate (GFR) and Staging of Kidney Disease* + +-------- + ------+| GFR (mL/min/1.73 m2) ?| With Kidney Damage ?| ?Without Kidney Damage+ +-- + +| ?>90 ?| ?Stage one ?| ? Normal ?+ +------- + -------+| ?60-89 ?| ?Stage two ?| ? Decreased GFR ? + +-------- + ------+| ?30-59 ?| ?Stage three ?| ? Stage three ? + +-------- + ------+| ?15-29 ?| ?Stage four ? | ? Stage four ?+ +------- + -------+| ?<15 (or dialysis) ? ?| ?Stage five ? | ? Stage five ?+ +------- + -------+ *Each stage assumes the associated GFR level has been in effect for at least three months. ?Stages 1 to 5, with or without kidney disease, indicate chronic kidney disease. Notes: Determination of stages one and two (with eGFR >59mL/min/1.73 m2) requires estimation of kidney damage for at least three months as defined by structural or functional abnormalities of the kidney, manifested by either:Pathological abnormalities or Markers of kidney damage (including abnormalities in the composition of the blood or urine or abnormalities in imaging tests). Lab Interpretation (test code = Abnormal 17634-7) [facility]31[facility]40 Test Item Value Reference Range Interpretation Comments MAGNESIUM (test code = 1151813885) 2.0 mg/dL 1.7-2.4 Lab Interpretation (test code = Normal 92418-6) [facility] WITH [id number] 07:51:51 Test Item Value Reference Range Interpretation Comments WBC (test code = See_Comment H [Automated 7590-2) message] The sy stem which generated this result transmitted reference range : 4.20 - 10.70 10*3/?L. The reference range was not used to interpret this result as normal/abnormal . RBC (test code = See_Comment [Automated 789-8) message] The sy stem which generated this result transmitted reference range : 4.26 - 5.52 10*6/?L. The reference range was not used to interpret this result as normal/abnormal . HGB (test code = 13.6 g/dL 12.2-16.4 718-7) HCT (test code = 39.9 % 38.4-49.3 4544-3) MCV (test code = 88.9 fL 81.7-95.6 787-2) MCH (test code = 30.3 pg 26.1-32.7 785-6) MCHC (test code = 34.1 g/dL 31.2-35.0 786-4) RDW-SD (test code = 42.5 fL 38.5-51.6 68625-1) RDW-CV (test code = 13.2 % 12.1-15.4 788-0) PLT (test code = See_Comment H [Automated 777-3) message] The sy stem which generated this result transmitted reference range : 150 - 328 10*3/ ?L. The reference r tosin was not used to interpret this result as normal/abnormal . MPV (test code = 9.6 fL 9.8-13.0 L 88213-1) NRBC/100 WBC (test See_Comment [Automat ed code = 8473276851) message] The system which generated this result transmitted reference range : 0.0 - 10.0 /100 WBCs. The refer ence range was not u sed to interpret th is result as normal/abnormal . NRBC x10^3 (test code <0.01 See_Comment [Auto mated = 4398865719) message] The s ystem which generated this result transmitted reference range : 10*3/?L. The reference range was not used to interpret this result as normal/abnormal . GRAN MAT (NEUT) % 78.4 % (test code = 770-8) IMM GRAN % (test code 0.70 % = 2101203483) LYMPH % (test code = 6.8 % 736-9) MONO % (test code = 11.4 % 5905-5) EOS % (test code = 2.4 % 713-8) BASO % (test code = 0.3 % 706-2) GRAN MAT x10^3(ANC) 8.93 10*3/uL 1.99-6.95 H (test code = 0988299624) IMM GRAN x10^3 (test 0.08 10*3/uL 0.00-0.06 H code = 3409863148) LYMPH x10^3 (test code 0.77 10*3/uL 1.09-3.23 L = 731-0) MONO x10^3 (test code 1.30 10*3/uL 0.36-1.02 H = 742-7) EOS x10^3 (test code = 0.27 10*3/uL 0.06-0.53 711-2) BASO x10^3 (test code 0.03 10*3/uL 0.01-0.09 = 704-7) Lab Interpretation Abnormal (test code = 69211-3) [facility] METABOLIC PANEL (NA, K, CL, CO2, GLUCOSE, BUN, CREATININE, CA)2021-07-23 23:42:37 Test Item Value Reference Range Interpretation Comments NA (test code = 137 mmol/L 135-145 5199482750) K (test code = 4.1 mmol/L 3.5-5.0 0891917560) CL (test code = 102 mmol/L 98-108 0509501686) CO2 TOTAL (test code = 30 mmol/L 23-31 3243697932) AGAP (test code = 2-16 2890368755) BUN (test code = 29 mg/dL 7-23 H 5665720734) GLUCOSE (test code = 168 mg/dL 70-110 H 6843327571) CREATININE (test code = 0.74 mg/dL 0.60-1.25 9626829819) CALCIUM (test code = 9.0 mg/dL 8.6-10.6 8493659512) eGFR (test code = mL/min/1.73m2 5452969483) DOTTIE (test code = DOTTIE) Association of Glomerular Filtration Rate (GFR) and Staging of Kidney Disease* + --+ --+ ------+| GFR (mL/min/1.73 m2) ?| With Kidney Damage ?| ?Without Kidney Damage+ --------+ --------+ +| ?>90 ?| ?Stage one ?| ? Normal ?+ ---+ ---+ -------+| ?60-89 ?| ?Stage two ?| ? Decreased GFR ? + --+ --+ ------+| ?30-59 ?| ?Stage three ?| ? Stage three ? + --+ --+ ------+| ?15-29 ?| ?Stage four ? | ? Stage four ?+ ---+ ---+ -------+| ?<15 (or dialysis) ? ?| ?Stage five ? | ? Stage five ?+ ---+ ---+ -------+ *Each stage assumes the associated GFR level has been in effect for at least three months. ?Stages 1 to 5, with or without kidney disease, indicate chronic kidney disease. Notes: Determination of stages one and two (with eGFR >59mL/min/1.73 m2) requires estimation of kidney damage for at least three months as defined by structural or functional abnormalities of the kidney, manifested by either:Pathological abnormalities or Markers of kidney damage (including abnormalities in the composition of the blood or urine or abnormalities in imaging tests). Lab Interpretation Abnormal (test code = 32487-5) [facility] WITH [id number] 20:53:35 Test Item Value Reference Range Interpretation Comments WBC (test code = See_Comment H [Automated 6621-2) message] The sy stem which generated this result transmitted reference range : 4.20 - 10.70 10*3/?L. The reference range was not used to interpret this result as normal/abnormal . RBC (test code = See_Comment [Automated 877-8) message] The sy stem which generated this result transmitted reference range : 4.26 - 5.52 10*6/?L. The reference range was not used to interpret this result as normal/abnormal . HGB (test code = 14.8 g/dL 12.2-16.4 718-7) HCT (test code = 43.1 % 38.4-49.3 4544-3) MCV (test code = 89.2 fL 81.7-95.6 787-2) MCH (test code = 30.6 pg 26.1-32.7 785-6) MCHC (test code = 34.3 g/dL 31.2-35.0 786-4) RDW-SD (test code = 43.0 fL 38.5-51.6 10391-6) RDW-CV (test code = 13.2 % 12.1-15.4 788-0) PLT (test code = See_Comment H [Automated 777-3) message] The sy stem which generated this result transmitted reference range : 150 - 328 10*3/ ?L. The reference r tosin was not used to interpret this result as normal/abnormal . MPV (test code = 10.2 fL 9.8-13.0 21431-8) NRBC/100 WBC (test See_Comment [Automat ed code = 9943712669) message] The system which generated this result transmitted reference range : 0.0 - 10.0 /100 WBCs. The refer ence range was not u sed to interpret th is result as normal/abnormal . NRBC x10^3 (test code <0.01 See_Comment [Auto mated = 2094632870) message] The s ystem which generated this result transmitted reference range : 10*3/?L. The reference range was not used to interpret this result as normal/abnormal . GRAN MAT (NEUT) % 78.9 % (test code = 770-8) IMM GRAN % (test code 0.60 % = 4816483844) LYMPH % (test code = 7.1 % 736-9) MONO % (test code = 11.8 % 5905-5) EOS % (test code = 1.1 % 713-8) BASO % (test code = 0.5 % 706-2) GRAN MAT x10^3(ANC) 9.73 10*3/uL 1.99-6.95 H (test code = 8187782650) IMM GRAN x10^3 (test 0.08 10*3/uL 0.00-0.06 H code = 6418892886) LYMPH x10^3 (test code 0.88 10*3/uL 1.09-3.23 L = 731-0) MONO x10^3 (test code 1.46 10*3/uL 0.36-1.02 H = 742-7) EOS x10^3 (test code = 0.13 10*3/uL 0.06-0.53 711-2) BASO x10^3 (test code 0.06 10*3/uL 0.01-0.09 = 704-7) Lab Interpretation Abnormal (test code = 96887-6) [facility] METABOLIC PANEL (NA, K, CL, CO2, GLUCOSE, BUN, CREATININE, CA)2021-07-22 12:35:46 Test Item Value Reference Range Interpretation Comments NA (test code = 136 mmol/L 135-145 7976557589) K (test code = 4.5 mmol/L 3.5-5.0 2942160603) CL (test code = 105 mmol/L 98-108 2795831166) CO2 TOTAL (test code = 23 mmol/L 23-31 6501223377) AGAP (test code = 2-16 2575038723) BUN (test code = 29 mg/dL 7-23 H 8022259427) GLUCOSE (test code = 142 mg/dL 70-110 H 1667914704) CREATININE (test code = 0.66 mg/dL 0.60-1.25 1700038869) CALCIUM (test code = 8.9 mg/dL 8.6-10.6 4040127481) eGFR (test code = mL/min/1.73m2 0991407746) DOTTIE (test code = DOTTIE) Association of Glomerular Filtration Rate (GFR) and Staging of Kidney Disease* + --+ --+ ------+| GFR (mL/min/1.73 m2) ?| With Kidney Damage ?| ?Without Kidney Damage+ --------+ --------+ +| ?>90 ?| ?Stage one ?| ? Normal ?+ ---+ ---+ -------+| ?60-89 ?| ?Stage two ?| ? Decreased GFR ? + --+ --+ ------+| ?30-59 ?| ?Stage three ?| ? Stage three ? + --+ --+ ------+| ?15-29 ?| ?Stage four ? | ? Stage four ?+ ---+ ---+ -------+| ?<15 (or dialysis) ? ?| ?Stage five ? | ? Stage five ?+ ---+ ---+ -------+ *Each stage assumes the associated GFR level has been in effect for at least three months. ?Stages 1 to 5, with or without kidney disease, indicate chronic kidney disease. Notes: Determination of stages one and two (with eGFR >59mL/min/1.73 m2) requires estimation of kidney damage for at least three months as defined by structural or functional abnormalities of the kidney, manifested by either:Pathological abnormalities or Markers of kidney damage (including abnormalities in the composition of the blood or urine or abnormalities in imaging tests). Lab Interpretation Abnormal (test code = 86082-9) [facility] Test Item Value Reference Range Interpretation Comments MAGNESIUM (test code = 8768457262) 2.0 mg/dL 1.7-2.4 Lab Interpretation (test code = Normal 31625-3) [facility] [id number] 12:07:28 Test Item Value Reference Range Interpretation Comments WBC (test code = 6690-2) See_Comment H [A utomated message] The system [employer] generated this result transmit judy reference range : 4.20 - 10.70 10*3/?L. The reference range was not used to interpret this result as normal/abnormal . RBC (test code = 789-8) See_Comment [Au tomated message] The system [employer] generated this result transmit judy reference range : 4.26 - 5.52 10* 6/?L. The reference r tosin was not used to interpret this result as normal/abnormal . HGB (test code = 718-7) 14.4 g/dL 12.2-16.4 HCT (test code = 4544-3) 42.5 % 38.4-49.3 MCH (test code = 785-6) 30.6 pg 26.1-32.7 MCV (test code = 787-2) 90.4 fL 81.7-95.6 MCHC (test code = 786-4) 33.9 g/dL 31.2-35.0 PLT (test code = 777-3) See_Comment H [Au tomated message] The system [employer] generated this result transmit judy reference range : 150 - 328 10*3/?L. The reference range was not used to interpret this result as normal/abnormal . MPV (test code = 9.8 fL 9.8-13.0 26179-9) RDW-CV (test code = 13.2 % 12.1-15.4 788-0) RDW-SD (test code = 43.5 fL 38.5-51.6 12771-7) NRBC x10^3 (test code = <0.01 See_Comment [Au tomated message] 3825661773) The system [employer] generated this result transmit judy reference range : 10*3/?L. The reference range was not used to interpret this result as normal/abnormal . NRBC/100 WBC (test code See_Comment [Au tomated message] = 8306117190) The system [employer] generated this result transmit judy reference range : 0.0 - 10.0 /100 WBC s. The reference r tosin was not used to interpret this result as normal/abnormal . IPF % (test code = 5350997159) Lab Interpretation (test Abnormal code = 68731-7) [facility] (NA, K, CL, CO2, GLUCOSE, BUN, CREATININE, CA)2021-07-17 12:24:49 Test Item Value Reference Range Interpretation Comments NA (test code = 137 mmol/L 135-145 1514610576) K (test code = 4.4 mmol/L 3.5-5.0 9619461200) CL (test code = 103 mmol/L 98-108 3164520296) CO2 TOTAL (test code = 28 mmol/L 23-31 2048139146) AGAP (test code = 2-16 0525454822) BUN (test code = 33 mg/dL 7-23 H 4771938570) GLUCOSE (test code = 141 mg/dL 70-110 H 7746732448) CREATININE (test code = 0.70 mg/dL 0.60-1.25 2149315447) CALCIUM (test code = 8.7 mg/dL 8.6-10.6 6588027693) eGFR (test code = mL/min/1.73m2 4723874565) DOTTIE (test code = DOTTIE) Association of Glomerular Filtration Rate (GFR) and Staging of Kidney Disease* + --+ --+ ------+| GFR (mL/min/1.73 m2) ?| With Kidney Damage ?| ?Without Kidney Damage+ --------+ --------+ +| ?>90 ?| ?Stage one ?| ? Normal ?+ ---+ ---+ -------+| ?60-89 ?| ?Stage two ?| ? Decreased GFR ? + --+ --+ ------+| ?30-59 ?| ?Stage three ?| ? Stage three ? + --+ --+ ------+| ?15-29 ?| ?Stage four ? | ? Stage four ?+ ---+ ---+ -------+| ?<15 (or dialysis) ? ?| ?Stage five ? | ? Stage five ?+ ---+ ---+ -------+ *Each stage assumes the associated GFR level has been in effect for at least three months. ?Stages 1 to 5, with or without kidney disease, indicate chronic kidney disease. Notes: Determination of stages one and two (with eGFR >59mL/min/1.73 m2) requires estimation of kidney damage for at least three months as defined by structural or functional abnormalities of the kidney, manifested by either:Pathological abnormalities or Markers of kidney damage (including abnormalities in the composition of the blood or urine or abnormalities in imaging tests). Lab Interpretation Abnormal (test code = 04673-6) [facility] 12:24:49 Test Item Value Reference Range Interpretation Comments MAGNESIUM (test code = 2829304850) 2.2 mg/dL 1.7-2.4 Lab Interpretation (test code = Normal 09342-2) [facility] [id number] 12:03:10 Test Item Value Reference Range Interpretation Comments WBC (test code = 6690-2) See_Comment [A utomated message] The system [employer] generated this result transmit judy reference range : 4.20 - 10.70 10*3/?L. The reference range was not used to interpret this result as normal/abnormal . RBC (test code = 789-8) See_Comment [Au tomated message] The system [employer] generated this result transmit judy reference range : 4.26 - 5.52 10* 6/?L. The reference r tosin was not used to interpret this result as normal/abnormal . HGB (test code = 718-7) 13.7 g/dL 12.2-16.4 HCT (test code = 4544-3) 39.9 % 38.4-49.3 MCH (test code = 785-6) 30.6 pg 26.1-32.7 MCV (test code = 787-2) 89.3 fL 81.7-95.6 MCHC (test code = 786-4) 34.3 g/dL 31.2-35.0 PLT (test code = 777-3) See_Comment H [Au tomated message] The system [facility] [employer] generated this result transmit judy reference range : 150 - 328 10*3/?L. The reference range was not used to interpret this result as normal/abnormal . MPV (test code = 9.7 fL 9.8-13.0 L 59206-3) RDW-CV (test code = 13.0 % 12.1-15.4 788-0) RDW-SD (test code = 42.2 fL 38.5-51.6 90902-0) NRBC x10^3 (test code = <0.01 See_Comment [Au tomated message] 8900851364) The system [facility] [employer] generated this result transmit judy reference range : 10*3/?L. The reference range was not used to interpret this result as normal/abnormal . NRBC/100 WBC (test code See_Comment [Au tomated message] = 6138118613) The system [facility] generated this result transmit judy reference range : 0.0 - 10.0 /100 WBC s. The reference r tosin was not used to interpret this result as normal/abnormal . IPF % (test code = 5979839679) Lab Interpretation (test Abnormal code = 55510-6) [facility] (NA, K, CL, CO2, GLUCOSE, BUN, CREATININE, CA)2021-07-15 12:30:40 Test Item Value Reference Range Interpretation Comments NA (test code = 136 mmol/L 135-145 8206082031) K (test code = 4.5 mmol/L 3.5-5.0 9555315778) CL (test code = 104 mmol/L 98-108 1878303795) CO2 TOTAL (test code = 29 mmol/L 23-31 0773613891) AGAP (test code = 2-16 7773096256) BUN (test code = 22 mg/dL 7-23 2457689717) GLUCOSE (test code = 140 mg/dL 70-110 H 1542525798) CREATININE (test code = 0.57 mg/dL 0.60-1.25 L 2874139202) CALCIUM (test code = 8.7 mg/dL 8.6-10.6 2795540045) eGFR (test code = mL/min/1.73m2 6380294921) DOTTIE (test code = DOTTIE) Association of Glomerular Filtration Rate (GFR) and Staging of Kidney Disease* + --+ --+ ------+| GFR (mL/min/1.73 m2) ?| With Kidney Damage ?| ?Without Kidney Damage+ --------+ --------+ +| ?>90 ?| ?Stage one ?| ? Normal ?+ ---+ ---+ -------+| ?60-89 ?| ?Stage two ?| ? Decreased GFR ? + --+ --+ ------+| ?30-59 ?| ?Stage three ?| ? Stage three ? + --+ --+ ------+| ?15-29 ?| ?Stage four ? | ? Stage four ?+ ---+ ---+ -------+| ?<15 (or dialysis) ? ?| ?Stage five ? | ? Stage five ?+ ---+ ---+ -------+ *Each stage assumes the associated GFR level has been in effect for at least three months. ?Stages 1 to 5, with or without kidney disease, indicate chronic kidney disease. Notes: Determination of stages one and two (with eGFR >59mL/min/1.73 m2) requires estimation of kidney damage for at least three months as defined by structural or functional abnormalities of the kidney, manifested by either:Pathological abnormalities or Markers of kidney damage (including abnormalities in the composition of the blood or urine or abnormalities in imaging tests). Lab Interpretation Abnormal (test code = 78791-9) [facility] 12:30:40 Test Item Value Reference Range Interpretation Comments MAGNESIUM (test code = 5414116699) 2.2 mg/dL 1.7-2.4 Lab Interpretation (test code = Normal 32785-8) [facility] WITHOUT [id number] 12:03:35 Test Item Value Reference Range Interpretation Comments WBC (test code = 6690-2) See_Comment [A utomated message] The system [employer] generated this result transmit judy reference range : 4.20 - 10.70 10*3/?L. The reference range was not used to interpret this result as normal/abnormal . RBC (test code = 789-8) See_Comment [Au tomated message] The system [employer] generated this result transmit judy reference range : 4.26 - 5.52 10* 6/?L. The reference r tosin was not used to interpret this result as normal/abnormal . HGB (test code = 718-7) 14.0 g/dL 12.2-16.4 HCT (test code = 4544-3) 40.4 % 38.4-49.3 MCH (test code = 785-6) 30.8 pg 26.1-32.7 MCV (test code = 787-2) 89.0 fL 81.7-95.6 MCHC (test code = 786-4) 34.7 g/dL 31.2-35.0 PLT (test code = 777-3) See_Comment [Au tomated message] The system [employer] generated this result transmit judy reference range : 150 - 328 10*3/?L. The reference range was not used to interpret this result as normal/abnormal . MPV (test code = 9.7 fL 9.8-13.0 L 51820-0) RDW-CV (test code = 12.7 % 12.1-15.4 788-0) RDW-SD (test code = 41.6 fL 38.5-51.6 39425-3) NRBC x10^3 (test code = <0.01 See_Comment [Au tomated message] 4587138743) The system [employer] generated this result transmit judy reference range : 10*3/?L. The reference range was not used to interpret this result as normal/abnormal . NRBC/100 WBC (test code See_Comment [Au tomated message] = 9415763155) [facility] system [facility] generated this result transmit judy reference range : 0.0 - 10.0 /100 WBC s. The reference r tosin was not used to interpret this result as normal/abnormal . IPF % (test code = 7140068175) Lab Interpretation (test Abnormal code = 98087-2) [facility] METABOLIC PANEL (NA, K, CL, CO2, GLUCOSE, BUN, CREATININE, CA)2021-07-14 13:14:22 Test Item Value Reference Range Interpretation Comments NA (test code = 137 mmol/L 135-145 7860158164) K (test code = 4.0 mmol/L 3.5-5.0 6594027558) CL (test code = 103 mmol/L 98-108 3003249096) CO2 TOTAL (test code = 31 mmol/L 23-31 1426155970) AGAP (test code = 2-16 0866449612) BUN (test code = 20 mg/dL 7-23 8913561448) GLUCOSE (test code = 139 mg/dL 70-110 H 7382604696) CREATININE (test code = 0.56 mg/dL 0.60-1.25 L 0719994792) CALCIUM (test code = 8.7 mg/dL 8.6-10.6 3572496921) eGFR (test code = mL/min/1.73m2 7309494908) DOTTIE (test code = DOTTIE) Association of Glomerular Filtration Rate (GFR) and Staging of Kidney Disease* + --+ --+ ------+| GFR (mL/min/1.73 m2) ?| With Kidney Damage ?| ?Without Kidney Damage+ --------+ --------+ +| ?>90 ?| ?Stage one ?| ? Normal ?+ ---+ ---+ -------+| ?60-89 ?| ?Stage two ?| ? Decreased GFR ? + --+ --+ ------+| ?30-59 ?| ?Stage three ?| ? Stage three ? + --+ --+ ------+| ?15-29 ?| ?Stage four ? | ? Stage four ?+ ---+ ---+ -------+| ?<15 (or dialysis) ? ?| ?Stage five ? | ? Stage five ?+ ---+ ---+ -------+ *Each stage assumes the associated GFR level has been in effect for at least three months. ?Stages 1 to 5, with or without kidney disease, indicate chronic kidney disease. Notes: Determination of stages one and two (with eGFR >59mL/min/1.73 m2) requires estimation of kidney damage for at least three months as defined by structural or functional abnormalities of the kidney, manifested by either:Pathological abnormalities or Markers of kidney damage (including abnormalities in the composition of the blood or urine or abnormalities in imaging tests). Lab Interpretation Abnormal (test code = 90731-0) [facility]14:22 Test Item Value Reference Range Interpretation Comments MAGNESIUM (test code = 9440963741) 1.9 mg/dL 1.7-2.4 Lab Interpretation (test code = Normal 96726-3) [facility] METABOLIC PANEL (NA, K, CL, CO2, GLUCOSE, BUN, CREATININE, CA)2021-07-13 12:09:21 Test Item Value Reference Range Interpretation Comments NA (test code = 137 mmol/L 135-145 9915996429) K (test code = 3.7 mmol/L 3.5-5.0 9283816416) CL (test code = 104 mmol/L 98-108 5461220517) CO2 TOTAL (test code = 27 mmol/L 23-31 5551710092) AGAP (test code = 2-16 9517237636) BUN (test code = 21 mg/dL 7-23 9799924828) GLUCOSE (test code = 137 mg/dL 70-110 H 2186143246) CREATININE (test code = 0.56 mg/dL 0.60-1.25 L 1575771239) CALCIUM (test code = 8.6 mg/dL 8.6-10.6 3432813036) eGFR (test code = mL/min/1.73m2 6578255453) DOTTIE (test code = DOTTIE) Association of Glomerular Filtration Rate (GFR) and Staging of Kidney Disease* + --+ --+ ------+| GFR (mL/min/1.73 m2) ?| With Kidney Damage ?| ?Without Kidney Damage+ --------+ --------+ +| ?>90 ?| ?Stage one ?| ? Normal ?+ ---+ ---+ -------+| ?60-89 ?| ?Stage two ?| ? Decreased GFR ? + --+ --+ ------+| ?30-59 ?| ?Stage three ?| ? Stage three ? + --+ --+ ------+| ?15-29 ?| ?Stage four ? | ? Stage four ?+ ---+ ---+ -------+| ?<15 (or dialysis) ? ?| ?Stage five ? | ? Stage five ?+ ---+ ---+ -------+ *Each stage assumes the associated GFR level has been in effect for at least three months. ?Stages 1 to 5, with or without kidney disease, indicate chronic kidney disease. Notes: Determination of stages one and two (with eGFR >59mL/min/1.73 m2) requires estimation of kidney damage for at least three months as defined by structural or functional abnormalities of the kidney, manifested by either:Pathological abnormalities or Markers of kidney damage (including abnormalities in the composition of the blood or urine or abnormalities in imaging tests). Lab Interpretation Abnormal (test code = 94374-4) [facility] 12:09:21 Test Item Value Reference Range Interpretation Comments MAGNESIUM (test code = 7509301263) 1.7 mg/dL 1.7-2.4 Lab Interpretation (test code = Normal 07520-6) [facility] WITH [id number] 11:44:37 Test Item Value Reference Range Interpretation Comments WBC (test code = See_Comment [Automated 5071-2) message] The sy stem which generated this result transmitted reference range : 4.20 - 10.70 10*3/?L. The reference range was not used to interpret this result as normal/abnormal . RBC (test code = See_Comment [Automated 529-8) message] The sy stem which generated this result transmitted reference range : 4.26 - 5.52 10*6/?L. The reference range was not used to interpret this result as normal/abnormal . HGB (test code = 13.2 g/dL 12.2-16.4 718-7) HCT (test code = 38.3 % 38.4-49.3 L 4544-3) MCV (test code = 88.9 fL 81.7-95.6 787-2) MCH (test code = 30.6 pg 26.1-32.7 785-6) MCHC (test code = 34.5 g/dL 31.2-35.0 786-4) RDW-SD (test code = 41.0 fL 38.5-51.6 71641-7) RDW-CV (test code = 12.6 % 12.1-15.4 788-0) PLT (test code = See_Comment [Automated 777-3) message] The sy stem which generated this result transmitted reference range : 150 - 328 10*3/ ?L. The reference r tosin was not used to interpret this result as normal/abnormal . MPV (test code = 10.1 fL 9.8-13.0 37462-9) NRBC/100 WBC (test See_Comment [Automat ed code = 4691071245) message] The system which generated this result transmitted reference range : 0.0 - 10.0 /100 WBCs. The refer ence range was not u sed to interpret th is result as normal/abnormal . NRBC x10^3 (test code <0.01 See_Comment [Auto mated = 5411724629) message] The s ystem which generated this result transmitted reference range : 10*3/?L. The reference range was not used to interpret this result as normal/abnormal . GRAN MAT (NEUT) % 64.5 % (test code = 770-8) IMM GRAN % (test code 0.90 % = 9422569287) LYMPH % (test code = 13.5 % 736-9) MONO % (test code = 10.2 % 5905-5) EOS % (test code = 10.5 % 713-8) BASO % (test code = 0.4 % 706-2) GRAN MAT x10^3(ANC) 5.18 10*3/uL 1.99-6.95 (test code = 6386502230) IMM GRAN x10^3 (test 0.07 10*3/uL 0.00-0.06 H code = 9966456855) LYMPH x10^3 (test code 1.08 10*3/uL 1.09-3.23 L = 731-0) MONO x10^3 (test code 0.82 10*3/uL 0.36-1.02 = 742-7) EOS x10^3 (test code = 0.84 10*3/uL 0.06-0.53 H 711-2) BASO x10^3 (test code 0.03 10*3/uL 0.01-0.09 = 704-7) Lab Interpretation Abnormal (test code = 38682-0) [facility] METABOLIC PANEL (NA, K, CL, CO2, GLUCOSE, BUN, CREATININE, CA)2021 12:05:28 Test Item Value Reference Range Interpretation Comments NA (test code = 139 mmol/L 135-145 9513011572) K (test code = 3.5 mmol/L 3.5-5.0 2908491547) CL (test code = 108 mmol/L 98-108 6212981825) CO2 TOTAL (test code = 28 mmol/L 23-31 4538075893) AGAP (test code = 2-16 6302211232) BUN (test code = 25 mg/dL 7-23 H 4581521905) GLUCOSE (test code = 147 mg/dL 70-110 H 5569049197) CREATININE (test code = 0.72 mg/dL 0.60-1.25 2918767356) CALCIUM (test code = 8.5 mg/dL 8.6-10.6 L 3859303015) eGFR (test code = mL/min/1.73m2 0756320430) DOTTIE (test code = DOTTIE) Association of Glomerular Filtration Rate (GFR) and Staging of Kidney Disease* + --+ --+ ------+| GFR (mL/min/1.73 m2) ?| With Kidney Damage ?| ?Without Kidney Damage+ --------+ --------+ +| ?>90 ?| ?Stage one ?| ? Normal ?+ ---+ ---+ -------+| ?60-89 ?| ?Stage two ?| ? Decreased GFR ? + --+ --+ ------+| ?30-59 ?| ?Stage three ?| ? Stage three ? + --+ --+ ------+| ?15-29 ?| ?Stage four ? | ? Stage four ?+ ---+ ---+ -------+| ?<15 (or dialysis) ? ?| ?Stage five ? | ? Stage five ?+ ---+ ---+ -------+ *Each stage assumes the associated GFR level has been in effect for at least three months. ?Stages 1 to 5, with or without kidney disease, indicate chronic kidney disease. Notes: Determination of stages one and two (with eGFR >59mL/min/1.73 m2) requires estimation of kidney damage for at least three months as defined by structural or functional abnormalities of the kidney, manifested by either:Pathological abnormalities or Markers of kidney damage (including abnormalities in the composition of the blood or urine or abnormalities in imaging tests). Lab Interpretation Abnormal (test code = 01146-0) [facility]:05[facility]28 Test Item Value Reference Range Interpretation Comments MAGNESIUM (test code = 0735517672) 2.0 mg/dL 1.7-2.4 Lab Interpretation (test code = Normal 41542-9) [facility] [id number] 11:35:41 Test Item Value Reference Range Interpretation Comments WBC (test code = See_Comment [Automated 5390-2) message] The sy stem which generated this result transmitted reference range : 4.20 - 10.70 10*3/?L. The reference range was not used to interpret this result as normal/abnormal . RBC (test code = See_Comment L [Automated 339-8) message] The sy stem which generated this result transmitted reference range : 4.26 - 5.52 10*6/?L. The reference range was not used to interpret this result as normal/abnormal . HGB (test code = 12.4 g/dL 12.2-16.4 718-7) HCT (test code = 35.9 % 38.4-49.3 L 4544-3) MCV (test code = 89.1 fL 81.7-95.6 787-2) MCH (test code = 30.8 pg 26.1-32.7 785-6) MCHC (test code = 34.5 g/dL 31.2-35.0 786-4) RDW-SD (test code = 41.8 fL 38.5-51.6 37054-1) RDW-CV (test code = 12.8 % 12.1-15.4 788-0) PLT (test code = See_Comment [Automated 777-3) message] The sy stem which generated this result transmitted reference range : 150 - 328 10*3/ ?L. The reference r tosin was not used to interpret this result as normal/abnormal . MPV (test code = 10.3 fL 9.8-13.0 36978-1) NRBC/100 WBC (test See_Comment [Automat ed code = 7244541991) message] The system which generated this result transmitted reference range : 0.0 - 10.0 /100 WBCs. The refer ence range was not u sed to interpret th is result as normal/abnormal . NRBC x10^3 (test code <0.01 See_Comment [Auto mated = 6462480616) message] The s ystem which generated this result transmitted reference range : 10*3/?L. The reference range was not used to interpret this result as normal/abnormal . GRAN MAT (NEUT) % 69.7 % (test code = 770-8) IMM GRAN % (test code 0.70 % = 8239224376) LYMPH % (test code = 10.7 % 736-9) MONO % (test code = 11.4 % 5905-5) EOS % (test code = 7.1 % 713-8) BASO % (test code = 0.4 % 706-2) GRAN MAT x10^3(ANC) 6.35 10*3/uL 1.99-6.95 (test code = 0954608984) IMM GRAN x10^3 (test 0.06 10*3/uL 0.00-0.06 code = 7362516224) LYMPH x10^3 (test code 0.98 10*3/uL 1.09-3.23 L = 731-0) MONO x10^3 (test code 1.04 10*3/uL 0.36-1.02 H = 742-7) EOS x10^3 (test code = 0.65 10*3/uL 0.06-0.53 H 711-2) BASO x10^3 (test code 0.04 10*3/uL 0.01-0.09 = 704-7) Lab Interpretation Abnormal (test code = 39845-0) [facility] WITH [id number] 01:06:49 Test Item Value Reference Range Interpretation Comments WBC (test code = See_Comment [Automated 6690-2) message] The sy stem which generated this result transmitted reference range : 4.20 - 10.70 10*3/?L. The reference range was not used to interpret this result as normal/abnormal . RBC (test code = See_Comment L [Automated 789-8) message] The sy stem which generated this result transmitted reference range : 4.26 - 5.52 10*6/?L. The reference range was not used to interpret this result as normal/abnormal . HGB (test code = 12.3 g/dL 12.2-16.4 718-7) HCT (test code = 35.0 % 38.4-49.3 L 4544-3) MCV (test code = 88.4 fL 81.7-95.6 787-2) MCH (test code = 31.1 pg 26.1-32.7 785-6) MCHC (test code = 35.1 g/dL 31.2-35.0 H 786-4) RDW-SD (test code = 41.4 fL 38.5-51.6 50767-5) RDW-CV (test code = 12.8 % 12.1-15.4 788-0) PLT (test code = See_Comment [Automated 777-3) message] The sy stem which generated this result transmitted reference range : 150 - 328 10*3/ ?L. The reference r tosin was not used to interpret this result as normal/abnormal . MPV (test code = 10.6 fL 9.8-13.0 07204-2) NRBC/100 WBC (test See_Comment [Automat ed code = 7355745491) message] The system which generated this result transmitted reference range : 0.0 - 10.0 /100 WBCs. The refer ence range was not u sed to interpret th is result as normal/abnormal . NRBC x10^3 (test code <0.01 See_Comment [Auto mated = 0261534756) message] The s ystem which generated this result transmitted reference range : 10*3/?L. The reference range was not used to interpret this result as normal/abnormal . GRAN MAT (NEUT) % 76.3 % (test code = 770-8) IMM GRAN % (test code 0.70 % = 2419920289) LYMPH % (test code = 9.5 % 736-9) MONO % (test code = 10.6 % 5905-5) EOS % (test code = 2.5 % 713-8) BASO % (test code = 0.4 % 706-2) GRAN MAT x10^3(ANC) 7.00 10*3/uL 1.99-6.95 H (test code = 3295760129) IMM GRAN x10^3 (test 0.06 10*3/uL 0.00-0.06 code = 8482587257) LYMPH x10^3 (test code 0.87 10*3/uL 1.09-3.23 L = 731-0) MONO x10^3 (test code 0.97 10*3/uL 0.36-1.02 = 742-7) EOS x10^3 (test code = 0.23 10*3/uL 0.06-0.53 711-2) BASO x10^3 (test code 0.04 10*3/uL 0.01-0.09 = 704-7) Lab Interpretation Abnormal (test code = 37745-4) [facility] METABOLIC PANEL (NA, K, CL, CO2, GLUCOSE, BUN, CREATININE, CA)2021-07-11 00:25:29 Test Item Value Reference Range Interpretation Comments NA (test code = 141 mmol/L 135-145 5941342345) K (test code = 3.7 mmol/L 3.5-5.0 6019950594) CL (test code = 110 mmol/L 98-108 H 2223491093) CO2 TOTAL (test code = 28 mmol/L 23-31 9407596911) AGAP (test code = 2-16 6129975523) BUN (test code = 38 mg/dL 7-23 H 2609885127) GLUCOSE (test code = 146 mg/dL 70-110 H 7612728155) CREATININE (test code = 0.88 mg/dL 0.60-1.25 7187378116) CALCIUM (test code = 9.1 mg/dL 8.6-10.6 5689986087) eGFR (test code = mL/min/1.73m2 9086204132) DOTTIE (test code = DOTTIE) Association of Glomerular Filtration Rate (GFR) and Staging of Kidney Disease* + --+ --+ ------+| GFR (mL/min/1.73 m2) ?| With Kidney Damage ?| ?Without Kidney Damage+ --------+ --------+ +| ?>90 ?| ?Stage one ?| ? Normal ?+ ---+ ---+ -------+| ?60-89 ?| ?Stage two ?| ? Decreased GFR ? + --+ --+ ------+| ?30-59 ?| ?Stage three ?| ? Stage three ? + --+ --+ ------+| ?15-29 ?| ?Stage four ? | ? Stage four ?+ ---+ ---+ -------+| ?<15 (or dialysis) ? ?| ?Stage five ? | ? Stage five ?+ ---+ ---+ -------+ *Each stage assumes the associated GFR level has been in effect for at least three months. ?Stages 1 to 5, with or without kidney disease, indicate chronic kidney disease. Notes: Determination of stages one and two (with eGFR >59mL/min/1.73 m2) requires estimation of kidney damage for at least three months as defined by structural or functional abnormalities of the kidney, manifested by either:Pathological abnormalities or Markers of kidney damage (including abnormalities in the composition of the blood or urine or abnormalities in imaging tests). Lab Interpretation Abnormal (test code = 81829-6) [facility] (NA, K, CL, CO2, GLUCOSE, BUN, CREATININE, CA)2021-07-11 00:25:29 Test Item Value Reference Range Interpretation Comments NA (test code = 141 mmol/L 135-145 0073076189) K (test code = 3.7 mmol/L 3.5-5.0 7630201339) CL (test code = 110 mmol/L 98-108 H 4532378276) CO2 TOTAL (test code = 28 mmol/L 23-31 5616712756) AGAP (test code = 2-16 4041979214) BUN (test code = 38 mg/dL 7-23 H 9754784419) GLUCOSE (test code = 146 mg/dL 70-110 H 6181910039) CREATININE (test code = 0.88 mg/dL 0.60-1.25 3272900995) CALCIUM (test code = 9.1 mg/dL 8.6-10.6 3135159147) eGFR (test code = mL/min/1.73m2 4193069420) DOTTIE (test code = DOTTIE) Association of Glomerular Filtration Rate (GFR) and Staging of Kidney Disease* + --+ --+ ------+| GFR (mL/min/1.73 m2) ?| With Kidney Damage ?| ?Without Kidney Damage+ --------+ --------+ +| ?>90 ?| ?Stage one ?| ? Normal ?+ ---+ ---+ -------+| ?60-89 ?| ?Stage two ?| ? Decreased GFR ? + --+ --+ ------+| ?30-59 ?| ?Stage three ?| ? Stage three ? + --+ --+ ------+| ?15-29 ?| ?Stage four ? | ? Stage four ?+ ---+ ---+ -------+| ?<15 (or dialysis) ? ?| ?Stage five ? | ? Stage five ?+ ---+ ---+ -------+ *Each stage assumes the associated GFR level has been in effect for at least three months. ?Stages 1 to 5, with or without kidney disease, indicate chronic kidney disease. Notes: Determination of stages one and two (with eGFR >59mL/min/1.73 m2) requires estimation of kidney damage for at least three months as defined by structural or functional abnormalities of the kidney, manifested by either:Pathological abnormalities or Markers of kidney damage (including abnormalities in the composition of the blood or urine or abnormalities in imaging tests). Lab Interpretation Abnormal (test code = 20086-4) [facility] METABOLIC PANEL (NA, K, CL, CO2, GLUCOSE, BUN, CREATININE, CA)2021-07-09 19:20:09 Test Item Value Reference Range Interpretation Comments NA (test code = 139 mmol/L 135-145 9445807539) K (test code = 3.8 mmol/L 3.5-5.0 Slight 1944030326) hemolysis CL (test code = 115 mmol/L 98-108 H 2050205637) CO2 TOTAL (test code 19 mmol/L 23-31 L = 3368250808) AGAP (test code = 2-16 8959566533) BUN (test code = 36 mg/dL 7-23 H Slight 7383869292) hemolysis GLUCOSE (test code = 107 mg/dL 70-110 1710714540) CREATININE (test code 1.19 mg/dL 0.60-1.25 = 8459204113) CALCIUM (test code = 6.9 mg/dL 8.6-10.6 L 0508852922) eGFR (test code = mL/min/1.73m2 9067051776) DOTTIE (test code = DOTTIE) Association of Glomerular Filtration Rate (GFR) and Staging of Kidney Disease* + -----+ --------+ +| GFR (mL/min/1.73 m2) ?| With Kidney Damage ?| ?Without Kidney Damage+ +------- +---- --+| ?>90 ?| ?Stage one ?| ? Normal ?+ ------+ ---------+--------- +| ?60-89 ?| ?Stage two ?| ? Decreased GFR ? + -----+ --------+ +| ?30-59 ?| ?Stage three ?| ? Stage three ? + -----+ --------+ +| ?15-29 ?| ?Stage four ? | ? Stage four ?+ ------+ ---------+--------- +| ?<15 (or dialysis) ? ?| ?Stage five ? | ? Stage five ?+ ------+ ---------+--------- + *Each stage assumes the associated GFR level has been in effect for at least three months. ?Stages 1 to 5, with or without kidney disease, indicate chronic kidney disease. Notes: Determination of stages one and two (with eGFR >59mL/min/1.73 m2) requires estimation of kidney damage for at least three months as defined by structural or functional abnormalities of the kidney, manifested by either:Pathological abnormalities or Markers of kidney damage (including abnormalities in the composition of the blood or urine or abnormalities in imaging tests). Lab Interpretation Abnormal (test code = 49147-4) [facility] METABOLIC PANEL (NA, K, CL, CO2, GLUCOSE, BUN, CREATININE, CA)2021-07-09 19:20:09 Test Item Value Reference Range Interpretation Comments NA (test code = 139 mmol/L 135-145 3584567064) K (test code = 3.8 mmol/L 3.5-5.0 Slight 2093184414) hemolysis CL (test code = 115 mmol/L 98-108 H 7678020110) CO2 TOTAL (test code 19 mmol/L 23-31 L = 5489138129) AGAP (test code = 2-16 3589061488) BUN (test code = 36 mg/dL 7-23 H Slight 7719399373) hemolysis GLUCOSE (test code = 107 mg/dL 70-110 5896675564) CREATININE (test code 1.19 mg/dL 0.60-1.25 = 0347628475) CALCIUM (test code = 6.9 mg/dL 8.6-10.6 L 1720284818) eGFR (test code = mL/min/1.73m2 1890950884) DOTTIE (test code = DOTTIE) Association of Glomerular Filtration Rate (GFR) and Staging of Kidney Disease* + -----+ --------+ +| GFR (mL/min/1.73 m2) ?| With Kidney Damage ?| ?Without Kidney Damage+ +------- +---- --+| ?>90 ?| ?Stage one ?| ? Normal ?+ ------+ ---------+--------- +| ?60-89 ?| ?Stage two ?| ? Decreased GFR ? + -----+ --------+ +| ?30-59 ?| ?Stage three ?| ? Stage three ? + -----+ --------+ +| ?15-29 ?| ?Stage four ? | ? Stage four ?+ ------+ ---------+--------- +| ?<15 (or dialysis) ? ?| ?Stage five ? | ? Stage five ?+ ------+ ---------+--------- + *Each stage assumes the associated GFR level has been in effect for at least three months. ?Stages 1 to 5, with or without kidney disease, indicate chronic kidney disease. Notes: Determination of stages one and two (with eGFR >59mL/min/1.73 m2) requires estimation of kidney damage for at least three months as defined by structural or functional abnormalities of the kidney, manifested by either:Pathological abnormalities or Markers of kidney damage (including abnormalities in the composition of the blood or urine or abnormalities in imaging tests). Lab Interpretation Abnormal (test code = 78739-2) [facility] [id number] 19:15:06 Test Item Value Reference Range Interpretation Comments PROTIME PATIENT (test See_Comment H [Auto mated message] code = 5964-2) The system [employer] generated this result transmitted ref erence range: 10.1 - 1 2.6 Seconds. The reference range was not used to int erpret this result as normal/abnormal . INR (test code = 6301-6) Nor mal INR <1.1; Warfarin Therap eutic range 2.0 to 3. 0 or 2.5 to 3.5, dep ending upon the indica tions. Lab Interpretation (test Abnormal code = 31231-3) [facility] / [id number] 19:15:06 Test Item Value Reference Range Interpretation Comments PROTIME PATIENT (test See_Comment H [Auto mated message] code = 5964-2) The system [employer] generated this result transmitted ref erence range: 10.1 - 1 2.6 Seconds. The reference range was not used to int erpret this result as normal/abnormal . INR (test code = 6301-6) Nor mal INR <1.1; Warfarin Therap eutic range 2.0 to 3. 0 or 2.5 to 3.5, dep ending upon the indica tions. Lab Interpretation (test Abnormal code = 37832-2) [facility] Confirmation (Lab Only)2021-07-09 19:13:57 Test Item Value Reference Range Interpretation Comments ABO & RH (test code B Positive Performe d at [facility] = 20) [facility]3 [facility] [address]Ofht Free: [phone] A No. [id number] [facility] Confirmation (Lab Only)2021-07-09 19:13:57 Test Item Value Reference Range Interpretation Comments ABO & RH (test code B Positive Performe d at [facility] = 20) [facility]3 [facility] s [address]Vbuo Free: [phone] A No. [id number] [facility] WITH [id number] 19:12:25 Test Item Value Reference Range Interpretation Comments WBC (test code = See_Comment [Automated 6690-2) message] The sy stem which generated this result transmitted reference range : 4.20 - 10.70 10*3/?L. The reference range was not used to interpret this result as normal/abnormal . RBC (test code = See_Comment [Automated 789-8) message] The sy stem which generated this result transmitted reference range : 4.26 - 5.52 10*6/?L. The reference range was not used to interpret this result as normal/abnormal . HGB (test code = 14.2 g/dL 12.2-16.4 718-7) HCT (test code = 41.0 % 38.4-49.3 4544-3) MCV (test code = 88.6 fL 81.7-95.6 787-2) MCH (test code = 30.7 pg 26.1-32.7 785-6) MCHC (test code = 34.6 g/dL 31.2-35.0 786-4) RDW-SD (test code = 42.2 fL 38.5-51.6 52233-3) RDW-CV (test code = 13.0 % 12.1-15.4 788-0) PLT (test code = See_Comment [Automated 777-3) message] The sy stem which generated this result transmitted reference range : 150 - 328 10*3/ ?L. The reference r tosin was not used to interpret this result as normal/abnormal . MPV (test code = 10.5 fL 9.8-13.0 85208-7) NRBC/100 WBC (test See_Comment [Automat ed code = 4957287868) message] The system which generated this result transmitted reference range : 0.0 - 10.0 /100 WBCs. The refer ence range was not u sed to interpret th is result as normal/abnormal . NRBC x10^3 (test code <0.01 See_Comment [Auto mated = 4919021254) message] The s ystem which generated this result transmitted reference range : 10*3/?L. The reference range was not used to interpret this result as normal/abnormal . GRAN MAT (NEUT) % 74.2 % (test code = 770-8) IMM GRAN % (test code 0.60 % = 0284840427) LYMPH % (test code = 8.3 % 736-9) MONO % (test code = 13.2 % 5905-5) EOS % (test code = 3.3 % 713-8) BASO % (test code = 0.4 % 706-2) GRAN MAT x10^3(ANC) 6.88 10*3/uL 1.99-6.95 (test code = 6120772565) IMM GRAN x10^3 (test 0.06 10*3/uL 0.00-0.06 code = 4340817344) LYMPH x10^3 (test code 0.77 10*3/uL 1.09-3.23 L = 731-0) MONO x10^3 (test code 1.23 10*3/uL 0.36-1.02 H = 742-7) EOS x10^3 (test code = 0.31 10*3/uL 0.06-0.53 711-2) BASO x10^3 (test code 0.04 10*3/uL 0.01-0.09 = 704-7) Lab Interpretation Abnormal (test code = 09188-1) [facility] WITH [id number] 19:12:25 Test Item Value Reference Range Interpretation Comments WBC (test code = See_Comment [Automated 3590-2) message] The sy stem which generated this result transmitted reference range : 4.20 - 10.70 10*3/?L. The reference range was not used to interpret this result as normal/abnormal . RBC (test code = See_Comment [Automated 771-8) message] The sy stem which generated this result transmitted reference range : 4.26 - 5.52 10*6/?L. The reference range was not used to interpret this result as normal/abnormal . HGB (test code = 14.2 g/dL 12.2-16.4 718-7) HCT (test code = 41.0 % 38.4-49.3 4544-3) MCV (test code = 88.6 fL 81.7-95.6 787-2) MCH (test code = 30.7 pg 26.1-32.7 785-6) MCHC (test code = 34.6 g/dL 31.2-35.0 786-4) RDW-SD (test code = 42.2 fL 38.5-51.6 95514-2) RDW-CV (test code = 13.0 % 12.1-15.4 788-0) PLT (test code = See_Comment [Automated 777-3) message] The sy stem which generated this result transmitted reference range : 150 - 328 10*3/ ?L. The reference r tosin was not used to interpret this result as normal/abnormal . MPV (test code = 10.5 fL 9.8-13.0 99606-3) NRBC/100 WBC (test See_Comment [Automat ed code = 1447093288) message] The system which generated this result transmitted reference range : 0.0 - 10.0 /100 WBCs. The refer ence range was not u sed to interpret th is result as normal/abnormal . NRBC x10^3 (test code <0.01 See_Comment [Auto mated = 4484080520) message] The s ystem which generated this result transmitted reference range : 10*3/?L. The reference range was not used to interpret this result as normal/abnormal . GRAN MAT (NEUT) % 74.2 % (test code = 770-8) IMM GRAN % (test code 0.60 % = 2538041567) LYMPH % (test code = 8.3 % 736-9) MONO % (test code = 13.2 % 5905-5) EOS % (test code = 3.3 % 713-8) BASO % (test code = 0.4 % 706-2) GRAN MAT x10^3(ANC) 6.88 10*3/uL 1.99-6.95 (test code = 9520199308) IMM GRAN x10^3 (test 0.06 10*3/uL 0.00-0.06 code = 4533107649) LYMPH x10^3 (test code 0.77 10*3/uL 1.09-3.23 L = 731-0) MONO x10^3 (test code 1.23 10*3/uL 0.36-1.02 H = 742-7) EOS x10^3 (test code = 0.31 10*3/uL 0.06-0.53 711-2) BASO x10^3 (test code 0.04 10*3/uL 0.01-0.09 = 704-7) Lab Interpretation Abnormal (test code = 51938-9) [facility] [id number] 16:21:40 Test Item Value Reference Range Interpretation Comments ABO & RH (test code B POSITIVE Performe d at [facility] = 20) [facility] [address] [place] [address] s [address]Tmou Free: [phone] A No. [id number] IAT (test code = Negative Performed a t [facility] 1185) Laboratory [facility] Blood [address] [address]Bcku Free: [phone] A No. [id number] General acute hospital and Screen - ONCE [id number] 16:21:40 Test Item Value Reference Range Interpretation Comments ABO & RH (test code B POSITIVE Performe d at [facility] = 20) Laboratory [facility] [address] [place] [address] s [address]Lzhc Free: [phone] A No. [id number] IAT (test code = Negative Performed a t [facility] 1185) Laboratory [facility] Blood [address] [place] [address]Kjha Free: [phone] A No. [id number] [facility] THRM[facility] [id number] 03:23:45 Test Item Value Reference Range Interpretation Comments APTT Patient (test code = See_Comment [ Automated message] 3173-2) The system [employer] generated this result transmitted ref erence range: 26 - 36 Seconds. The re ference range was not u sed to interpret this result as normal/abnor mal. Lab Interpretation (test Normal code = 36789-4) [facility] [id number] 03:23:45 Test Item Value Reference Range Interpretation Comments APTT Patient (test code = See_Comment [ Automated message] 3173-2) The system [employer] generated this result transmitted ref erence range: 26 - 36 Seconds. The re ference range was not u sed to interpret this result as normal/abnor mal. Lab Interpretation (test Normal code = 89131-1) [facility] / [id number] 03:23:44 Test Item Value Reference Range Interpretation Comments PROTIME PATIENT (test See_Comment H [Auto mated message] code = 5964-2) The system [employer] generated this result transmitted ref erence range: 10.1 - 1 2.6 Seconds. The reference range was not used to int erpret this result as normal/abnormal . INR (test code = 6301-6) Nor mal INR <1.1; Warfarin Therap eutic range 2.0 to 3. 0 or 2.5 to 3.5, dep ending upon the indica tions. Lab Interpretation (test Abnormal code = 12072-2) [facility] / [id number] 03:23:44 Test Item Value Reference Range Interpretation Comments PROTIME PATIENT (test See_Comment H [Auto mated message] code = 5964-2) The system [employer] generated this result transmitted ref erence range: 10.1 - 1 2.6 Seconds. The reference range was not used to int erpret this result as normal/abnormal . INR (test code = 6301-6) Nor mal INR <1.1; Warfarin Therap eutic range 2.0 to 3. 0 or 2.5 to 3.5, dep ending upon the indica tions. Lab Interpretation (test Abnormal code = 59085-5) [facility] [id number] 14:11:50 Test Item Value Reference Range Interpretation Comments NT-proBNP (test code 5670 pg/mL See_Comment H [Autom ated = 8835772533) message] The system which generated this result transmitted reference range : <=450. The reference range was not used to interpret this result as normal/abnormal . DOTTIE (test code = DOTTIE) Biotin has been reported to cause a negative bias, interpret results relative to patient's use of biotin. Lab Interpretation Abnormal (test code = 44279-3) [facility] [id number] 14:11:50 Test Item Value Reference Range Interpretation Comments NT-proBNP (test code 5670 pg/mL See_Comment H [Autom ated = 6280042738) message] The system which generated this result transmitted reference range : <=450. The reference range was not used to interpret this result as normal/abnormal . DOTTIE (test code = DOTTIE) Biotin has been reported to cause a negative bias, interpret results relative to patient's use of biotin. Lab Interpretation Abnormal (test code = 74656-9) [facility] Center[facility] [id number] 01:51:22 Test Item Value Reference Interpretation Comments Range TROPONIN I (test 0.025 ng/mL See_Comment [Automated code = 3348815144) message] The system which generated this result transmitted reference range : <=0.034. The reference range was not used to interpret this result as normal/abnormal . DOTTIE (test code = Reference (Normal) DOTTIE) Range (defined by the 99th percentile reference limit): <= 0.034 ng/mL Note: Cardiac troponin begins to rise 3-4 hours after the onset of ischemia. Repeat in 4-6 hours if the sample was drawn within 3-4 hours of the onset of the symptom and found normal. Diagnosis of myocardial injury is made with acute changes in cTn concentrations with at least one serial sample above the 99th percentile upper reference limit (URL), taken together with the patient's clinical presentation. Biotin has been reported to cause a negative bias, interpret results relative to patient's use of biotin. Lab Interpretation Normal (test code = 22393-5) [facility]. METABOLIC PANEL (42887)2021-07-07 01:40:01 Test Item Value Reference Range Interpretation Comments NA (test code = 134 mmol/L 135-145 L 9217096452) K (test code = 4.2 mmol/L 3.5-5.0 2443118322) CL (test code = 103 mmol/L 98-108 0246455323) CO2 TOTAL (test code = 26 mmol/L 23-31 5000490508) AGAP (test code = 2-16 1329156827) BUN (test code = 18 mg/dL 7-23 4569822279) GLUCOSE (test code = 136 mg/dL 70-110 H 4895197966) CREATININE (test code = 0.67 mg/dL 0.60-1.25 4041832231) TOTAL BILI (test code = 1.5 mg/dL 0.1-1.1 H 6001569669) CALCIUM (test code = 9.0 mg/dL 8.6-10.6 8812136856) T PROTEIN (test code = 6.3 g/dL 6.3-8.2 2796176220) ALBUMIN (test code = 3.5 g/dL 3.5-5.0 6645876814) ALK PHOS (test code = 58 U/L 34-122 1359235996) ALTv (test code = 15 U/L 5-50 1742-6) AST(SGOT) (test code = 28 U/L 13-40 1666915540) eGFR (test code = mL/min/1.73m2 7405196594) DOTTIE (test code = DOTTIE) Association of Glomerular Filtration Rate (GFR) and Staging of Kidney Disease* + --+ --+ ------+| GFR (mL/min/1.73 m2) ?| With Kidney Damage ?| ?Without Kidney Damage+ --------+ --------+ +| ?>90 ?| ?Stage one ?| ? Normal ?+ ---+ ---+ -------+| ?60-89 ?| ?Stage two ?| ? Decreased GFR ? + --+ --+ ------+| ?30-59 ?| ?Stage three ?| ? Stage three ? + --+ --+ ------+| ?15-29 ?| ?Stage four ? | ? Stage four ?+ ---+ ---+ -------+| ?<15 (or dialysis) ? ?| ?Stage five ? | ? Stage five ?+ ---+ ---+ -------+ *Each stage assumes the associated GFR level has been in effect for at least three months. ?Stages 1 to 5, with or without kidney disease, indicate chronic kidney disease. Notes: Determination of stages one and two (with eGFR >59mL/min/1.73 m2) requires estimation of kidney damage for at least three months as defined by structural or functional abnormalities of the kidney, manifested by either:Pathological abnormalities or Markers of kidney damage (including abnormalities in the composition of the blood or urine or abnormalities in imaging tests). Lab Interpretation Abnormal (test code = 12597-4) [facility] WITH [id number] 01:03:59 Test Item Value Reference Range Interpretation Comments WBC (test code = See_Comment H [Automated 6690-2) message] The sy stem which generated this result transmitted reference range : 4.20 - 10.70 10*3/?L. The reference range was not used to interpret this result as normal/abnormal . RBC (test code = See_Comment [Automated 789-8) message] The sy stem which generated this result transmitted reference range : 4.26 - 5.52 10*6/?L. The reference range was not used to interpret this result as normal/abnormal . HGB (test code = 15.3 g/dL 12.2-16.4 718-7) HCT (test code = 43.9 % 38.4-49.3 4544-3) MCV (test code = 88.5 fL 81.7-95.6 787-2) MCH (test code = 30.8 pg 26.1-32.7 785-6) MCHC (test code = 34.9 g/dL 31.2-35.0 786-4) RDW-SD (test code = 41.0 fL 38.5-51.6 18436-1) RDW-CV (test code = 12.6 % 12.1-15.4 788-0) PLT (test code = See_Comment [Automated 777-3) message] The sy stem which generated this result transmitted reference range : 150 - 328 10*3/ ?L. The reference r tosin was not used to interpret this result as normal/abnormal . MPV (test code = 10.1 fL 9.8-13.0 55910-9) NRBC/100 WBC (test See_Comment [Automat ed code = 7890767973) message] The system which generated this result transmitted reference range : 0.0 - 10.0 /100 WBCs. The refer ence range was not u sed to interpret th is result as normal/abnormal . NRBC x10^3 (test code <0.01 See_Comment [Auto mated = [id number]) message] The s ystem which generated this result transmitted reference range : 10*3/?L. The reference range was not used to interpret this result as normal/abnormal . GRAN MAT (NEUT) % 77.6 % (test code = 770-8) IMM GRAN % (test code 0.50 % = [id number]) LYMPH % (test code = 5.9 % 736-9) MONO % (test code = 12.4 % 5905-5) EOS % (test code = 3.1 % 713-8) BASO % (test code = 0.5 % 706-2) GRAN MAT x10^3(ANC) 8.37 10*3/uL 1.99-6.95 H (test code = 1949271610) IMM GRAN x10^3 (test 0.05 10*3/uL 0.00-0.06 code = 9176295599) LYMPH x10^3 (test code 0.64 10*3/uL 1.09-3.23 L = 731-0) MONO x10^3 (test code 1.34 10*3/uL 0.36-1.02 H = 742-7) EOS x10^3 (test code = 0.33 10*3/uL 0.06-0.53 711-2) BASO x10^3 (test code 0.05 10*3/uL 0.01-0.09 = 704-7) Lab Interpretation Abnormal (test code = 82476-9) [facility]"
[2021-08-05 08:47] LABS: Absolute Lymphocytes (CBC) 0.9 K/uL (0.7-4.9); Hematocrit 41.5 % (39.6-49.0); Lymphocytes % 8.1 % (15.3-44.8); Protime INR 2.66; RBC Red Blood Cell Count 4.62 M/uL (4.33-5.43)
--- NOTE | 2021-08-05 08:55 | RAD REPORT ---
EXAM DESCRIPTION: CT - Head C Spine Cap Wo Con - 08/05/2021 8:29 am CLINICAL HISTORY: Trauma, head and neck injury. Chest, abdomen and pelvis pain. Post fall COMPARISON: No comparisons TECHNIQUE: CT head without contrast. CT cervical spine without contrast with coronal and sagittal reformatted images. CT chest, abdomen and pelvis without contrast with coronal and sagittal reformatted images of the [facility] ne. All CT scans are performed using dose optimization technique as appropriate and may include automated exposure control or mA/KV adjustment according to patient size. FINDINGS: CT HEAD WITHOUT CONTRAST: No intracranial hemorrhage, hydrocephalus or extra-axial fluid collection. No areas of brain edema o r midline shift. Right mastoid effusion. Paranasal sinuses and mastoids are otherwise clear. The calvarium is intact. CT CERVICAL SPINE WITHOUT CONTRAST: No fracture or subluxation. Mild cervical degenerative changes are present with facet hypertrophy. Th e prevertebral soft tissues are normal in thickness. CT CHEST, ABDOMEN, PELVIS WITHOUT CONTRAST: NOTE: Lack of contrast is a significant limitation in the assessment of trauma related findings. Spec ifically, solid organ, vascular and bowel evaluation is significantly limited. The lungs are clear.No pneumothorax or pericardial/pleural fluid. No evidence of intra-abdominal visceral injury, free fluid or free air is seen within the above detai led limitations. No pelvic mass or hematoma seen. Hardware is present proximal left femur. Bones are mildly demineralized. No acute fracture is present. IMPRESSION: Negative for acute traumatic findings within the above detailed limitations.
[2021-08-05 09:19] LABS: ALT/SGPT 28 U/L (12-78); AST/SGOT 25 U/L (15-37); Albumin 2.3 g/dL (3.4-5.0); Alkaline Phosphatase 115 U/L (45-117); BUN Blood Urea Nitrogen 20 mg/dL (7-18); Bicarbonate 24 mmol/L (21-32); Bilirubin Direct 0.5 mg/dL (0-0.2); Bilirubin Total 1.3 mg/dL (0.2-1.0); Glucose Level 142 mg/dL (74-106); Potassium 3.4 mmol/L (3.5-5.1); Protein, Total 6.3 g/dL (6.4-8.2); Sodium Level 138 mmol/L (136-145)
--- NOTE | 2021-08-05 09:24 | ER ---
Nurse's Notes [facility] Name: Patrice Charles Age: 76 yrs Sex: Male : 1945 Arrival Date: 08/05/2021 Time: 07:59 Bed 2 Private MD: Diagnosis: Fall on same level, unspecified;Abrasion of left elbow Presentation: 08/05 08:00 Chief complaint: Patient states: Pt from [facility], staff reports finding pt on floor ph near bed after an unwitnessed fall. Staff reports that pt was only responsive to sternal rub at that time. Pt placed back in bed w/ lift, awake and alert upon EMS arrival, oriented to baseline, hx of dementia. Skin tear to L elbow. IV initiated to RAC. Care prior to arrival: IV initiated. 20 GA, in the right antecubital area. Mechanism of Injury: Fall out of bed. Trauma event details: Injury occurred in the [facility], Injury occurred: [facility] Injury occurred: August 05, 2021. 08:00 Acuity: ALANNA 3 ph 08:00 Method Of Arrival: EMS: [facility] ph 08:15 Coronavirus screen: At this time, the client does not indicate any symptoms associated ph with coronavirus-19. Ebola Screen: No symptoms or risks identified at this time. Initial Sepsis Screen: Does the patient meet any 2 criteria? Yes Does the patient have a suspected source of infection? No. Patient's initial sepsis screen is negative. Risk Assessment: Do you want to hurt yourself or someone else? Patient reports no desire to harm self or others. Onset of symptoms was August 05, 2021. Trauma Activation: Not Applicable Physician: ED Physician; Name: ; Notified At: ; Arrived At: Physician: General Surgeon; Name: ; Notified At: ; Arrived At: Physician: Radiology; Name: ; Notified At: ; Arrived At: Physician: Respiratory; Name: ; Notified At: ; Arrived At: Physician: Lab; Name: ; Notified At: ; Arrived At: Historical: - Allergies: 08:05 No Known Allergies; ph - Home Meds: 08:05 Aldactone 25 mg Oral tab 1 tab once daily [Active]; amlodipine 2.5 mg tab 1 tab once ph daily [Active]; Lasix 40 mg Oral tab 1 tab once daily [Active]; lisinopril 40 mg Oral tab 1 tab once daily [Active]; Lipitor 40 mg Oral tab 1 tab once daily [Active]; metoprolol succinate 25 mg oral Tb24 1 tab once daily [Active]; mirtazapine 7.5 mg Oral tab 1 tab once daily [Active]; Proscar 5 mg Oral tab 1 tab once daily [Active]; Risperdal 0.25 mg Oral tab 1 tabs daily [Active]; Risperdal 0.5 mg Oral tab 1 tabs nightly [Active]; Senokot 8.6 mg Oral tab 2 tabs once daily [Active]; tamsulosin 0.4 mg oral cap 2 caps once daily [Active]; Xarelto 20 mg oral tab 1 tab once daily [Active]; - PMHx: 08:05 Congestive heart failure; Hypercholesterolemia; Dementia; UTI; Atrial fibrillation; ph Hypertensive disorder; - PSHx: 08:05 L femur sx; ph - Immunization history: Last tetanus immunization: unknown. - Social history:: Smoking status: unknown. Screenin:04 Abuse screen: Denies threats or abuse. Denies injuries from another. Nutritional ph screening: No deficits noted. Tuberculosis screening: No symptoms or risk factors identified. Fall Risk Fall in past 12 months (25 points). Secondary diagnosis (15 points) dementia, IV access (20 points). Ambulatory Aid- Crutches/Cane/Walker (15 pts). Gait- Impaired (20 pts.). Mental Status- Overestimates/Forgets Limitations (15 pts.). Total Prado Fall Scale indicates High Risk Score (45 or more points). Fall prevention measures have been instituted. Side Rails Up X 2 Placed Close to Nursing Station Frequent Obs/Assessments Occuring As available patient and family educated on Fall Prevention Program and Strategies. Primary Survey: 08:04 NO uncontrolled hemorrhage observed. A: The patient is alert. Airway: patent, No ph supplemental oxygen in use on arrival. Oral cavity: clear, Trachea midline. Breathing/Chest: Respiratory pattern: regular, Respiratory effort: spontaneous, unlabored. Circulation: Skin color: pink, Skin temperature: warm, dry. Disability Alert. Exposure/Environment: There is no evidence of uncontrolled external bleeding. Obvious injury(ies) are noted at this time: skin tear to L elbow, dressing in place. 09:40 Reassessment Airway Airway Patent Breathing/Chest Respiratory pattern Regular ph Respiratory effort Spontaneous Unlabored Circulation Color [place] Temperature Warm Dry Disability Alert. Secondary Survey: 08:16 HEENT: No deficits noted. Gastrointestinal: No deficits noted. : Iraheta in place to ph gravity drainage. Musculoskeletal: Circulation, motion, and sensation intact. Range of motion: intact in all extremities. Injury Description: Skin tears sustained to left elbow. Assessment: 08:10 General: Appears in no apparent distress. comfortable, Behavior is calm, cooperative, ph appropriate for age. Pain: Complains of pain in left elbow. Neuro: Level of Consciousness is awake, alert, obeys commands, Oriented to person. Cardiovascular: Capillary refill < 3 seconds in bilateral fingers Patient's skin is warm and dry. Respiratory: Airway is patent Respiratory effort is even, unlabored. : Iraheta in place to gravity drainage. Derm: Skin is fragile, is thin, Skin is pink, warm \T\ dry. Musculoskeletal: Circulation, motion, and sensation intact. Range of motion: intact in all extremities. 08:14 Reassessment: Patient appears in no apparent distress at this time. Patient and/or ph family updated on plan of care and expected duration. Pain level reassessed. Pt taken to CT via stretcher. 09:39 Reassessment: Patient appears in no apparent distress at this time. Patient and/or ph family updated on plan of care and expected duration. Pain level reassessed. Attempted to call report to [facility], sree was forwarded to answering machine, will attempt again. 10:10 Reassessment: Patient appears in no apparent distress at this time. No changes from previously documented assessment. Patient and/or family updated on plan of care and expected duration. Pain level reassessed. Vital Signs: 08:14 BP 138 / 75; Pulse 77; Resp 18; Temp 98.4(TE); Pulse Ox 96% on R/A; Weight 90.72 kg; ph Height 6 ft. 0 in. (182.88 cm); 08:25 BP 124 / 78; Pulse 82; Resp 18 S; Pulse Ox 99% on R/A; jg9 09:39 BP 123 / 82; Pulse 69; Resp 18; Temp 98.0; Pulse Ox 100% on R/A; ph 08:14 Body Mass Index 27.12 (90.72 kg, 182.88 cm) ph Doroteo Coma Score: 08:14 Eye Response: spontaneous(4). Verbal Response: confused(4). Motor Response: obeys ph commands(6). Total: 14. 09:39 Eye Response: spontaneous(4). Verbal Response: confused(4). Motor Response: obeys ph commands(6). Total: 14. 08:14 pt w/ dementia ph Trauma Score (Adult): 08:14 Eye Response: spontaneous(1); Verbal Response: confused(1); Motor Response: obeys ph commands(2); Systolic BP: > 89 mm Hg(4); Respiratory Rate: 10 to 29 per min(4); Doroteo Score: 14; Trauma Score: 12 09:39 Eye Response: spontaneous(1); Verbal Response: confused(1); Motor Response: obeys ph commands(2); Systolic BP: > 89 mm Hg(4); Respiratory Rate: 10 to 29 per min(4); [place] Score: 14; Trauma Score: 12 ED Course: 07:59 Patient arrived in ED. ph 07:59 Zack Jay MD is Attending Physician. kdr 08:04 Triage completed. ph 08:14 Maintain EMS IV. Dressing intact. Good blood return noted. Site clean \T\ dry. Gauge \T\ ph site: 20 RAC. 08:15 Arm band placed on. ph 08:16 Patient maintains SpO2 saturation greater than 95% on room air. Thermoregulation: warm ph blanket given to patient. 08:16 Patient has correct armband on for positive identification. Placed in gown. Bed in low ph position. Call light in reach. Side rails up X2. classroom monitor on. Pulse ox on. NIBP on. Door closed. Noise minimized. Pillow given. 08:29 CT Traumagram (Head C Spine CAP wo con) In Process Unspecified. EDMS 08:41 Kiah Rey, RN is Primary Nurse. ph 08:45 Dressings: left elbow dressing in place prior to arrival-staff at nursing facility jg9 applied steri strips and gauze bandaging. 09:13 No apparent distress. Resting quietly. Awaiting lab results, Awaiting radiology results.[id number] 09:40 No provider procedures requiring assistance completed. IV discontinued, intact, ph bleeding controlled, No redness/swelling at site. Pressure dressing applied. Administered Medications: No medications were administered Intake: 08:14 PO: 0ml; Total: 0ml. ph Output: 08:14 Urine: 0ml; Total: 0ml. ph Outcome: :23 Discharge ordered by . kdr 10:10 Discharged to via [facility] ph 10:10 Condition: good 10:10 Discharge instructions given to [facility]. ph 10:11 Patient's length of stay was not longer than 2 hours. ph 10:11 Patient left the ED. ph Signatures: Dispatcher [employer] EDMS Zack Jay MD MD kdr Hall, Patricia, RN RN ph Heather Guy RN RN jg9
--- NOTE | 2021-08-05 09:25 | EDPHYS ---
Physician Documentation [facility] Name: Patrice Charles Age: 76 yrs Sex: Male : 1945 Arrival Date: 08/05/2021 Time: 07:59 Bed 2 Private MD: ED Physician Zack Jay HPI: 08/05 08:10 This 76 yrs old Male presents to ER via EMS with complaints of Fall Injury. kdr 08:10 The patient was found on the floor next to his bed at the skilled nursing. He does not kdr know on how he got there or how long he had been there though it is thought that it was a long. Details of fall: The patient fell from an upright position, while standing. Onset: The symptoms/episode began/occurred suddenly, just prior to arrival, this morning. Associated injuries: The patient sustained The patient has apparent skin tears on the left elbow. Severity of symptoms: At their worst the symptoms were mild, in the emergency department the symptoms are unchanged. Unable to obtain HPI due to baseline dementia. It is unknown whether or not the patient has had similar symptoms in the past. It is unknown whether or not the patient has recently seen a physician. Historical: - Allergies: 08:05 No Known Allergies; ph - Home Meds: 08:05 Aldactone 25 mg Oral tab 1 tab once daily [Active]; amlodipine 2.5 mg tab 1 tab once ph daily [Active]; Lasix 40 mg Oral tab 1 tab once daily [Active]; lisinopril 40 mg Oral tab 1 tab once daily [Active]; Lipitor 40 mg Oral tab 1 tab once daily [Active]; metoprolol succinate 25 mg oral Tb24 1 tab once daily [Active]; mirtazapine 7.5 mg Oral tab 1 tab once daily [Active]; Proscar 5 mg Oral tab 1 tab once daily [Active]; Risperdal 0.25 mg Oral tab 1 tabs daily [Active]; Risperdal 0.5 mg Oral tab 1 tabs nightly [Active]; Senokot 8.6 mg Oral tab 2 tabs once daily [Active]; tamsulosin 0.4 mg oral cap 2 caps once daily [Active]; Xarelto 20 mg oral tab 1 tab once daily [Active]; - PMHx: 08:05 Congestive heart failure; Hypercholesterolemia; Dementia; UTI; Atrial fibrillation; ph Hypertensive disorder; - PSHx: 08:05 L femur sx; ph - Immunization history: Last tetanus immunization: unknown. - Social history:: Smoking status: unknown. ROS: 08:10 Constitutional: Unable to obtain secondary to his baseline dementia. Patient is unable kdr to relate any significant details of the events this morning Exam: 08:10 Constitutional: This is a well developed, well nourished patient who is awake, alert, kdr and in no acute distress. Head/Face: Normocephalic, atraumatic. Eyes: Pupils equal round and reactive to light, extra-ocular motions intact. Lids and lashes normal. Conjunctiva and sclera are non-icteric and not injected. Cornea within normal limits. Periorbital areas with no swelling, redness, or edema. Neck: Trachea midline, no thyromegaly or masses palpated, and no cervical lymphadenopathy. Supple, full range of motion without nuchal rigidity, or vertebral point tenderness. No Meningismus. Chest/axilla: Normal chest wall appearance and motion. Nontender with no deformity. No lesions are appreciated. Cardiovascular: Regular rate and rhythm with a normal S1 and S2. No gallops, murmurs, or rubs. Normal PMI, no JVD. No pulse deficits. Respiratory: Lungs have equal breath sounds bilaterally, clear to auscultation and percussion. No rales, rhonchi or wheezes noted. No increased work of breathing, no retractions or nasal flaring. Abdomen/GI: Soft, non-tender, with normal bowel sounds. No distension or tympany. No guarding or rebound. No evidence of tenderness throughout. Back: No spinal tenderness. No costovertebral tenderness. Full range of motion. MS/ Extremity: Pulses equal, no cyanosis. Neurovascular intact. Full, normal range of motion. Neuro: Awake and alert, GCS 15, oriented to person, place, time, and situation. Cranial nerves II-XII grossly intact. Motor strength 5/5 in all extremities. Sensory grossly intact. Cerebellar exam normal. Normal gait. Psych: Awake, alert, with orientation to person, place and time. Behavior, mood, and affect are within normal limits. 08:10 Skin: injury, avulsion(s), a small A moderate sized 09:26 ECG was reviewed by the Attending Physician. kdr Vital Signs: 08:14 BP 138 / 75; Pulse 77; Resp 18; Temp 98.4(TE); Pulse Ox 96% on R/A; Weight 90.72 kg; ph Height 6 ft. 0 in. (182.88 cm); 08:25 BP 124 / 78; Pulse 82; Resp 18 S; Pulse Ox 99% on R/A; jg9 09:39 BP 123 / 82; Pulse 69; Resp 18; Temp 98.0; Pulse Ox 100% on R/A; ph 08:14 Body Mass Index 27.12 (90.72 kg, 182.88 cm) ph Doroteo Coma Score: 08:14 Eye Response: spontaneous(4). Verbal Response: confused(4). Motor Response: obeys ph commands(6). Total: 14. 09:39 Eye Response: spontaneous(4). Verbal Response: confused(4). Motor Response: obeys ph commands(6). Total: 14. 08:14 pt w/ dementia ph Trauma Score (Adult): 08:14 Eye Response: spontaneous(1); Verbal Response: confused(1); Motor Response: obeys ph commands(2); Systolic BP: > 89 mm Hg(4); Respiratory Rate: 10 to 29 per min(4); Doroteo Score: 14; Trauma Score: 12 09:39 Eye Response: spontaneous(1); Verbal Response: confused(1); Motor Response: obeys ph commands(2); Systolic BP: > 89 mm Hg(4); Respiratory Rate: 10 to 29 per min(4); [place] Score: 14; Trauma Score: 12 MDM: 08:10 Data reviewed: vital signs, nurses notes, lab test result(s), radiologic studies. kdr Counseling: I had a detailed discussion with the patient and/or guardian regarding: the historical points, exam findings, and any diagnostic results supporting the discharge/admit diagnosis, lab results, radiology results, the need for outpatient follow up. 09:23 Patient medically screened. kdr 08/05 08:09 Order name: Basic Metabolic Panel kdr 08/05 08:09 Order name: CBC with Diff; Complete Time: 09:21 kdr 08/05 08:09 Order name: LFT's kdr 08/05 08:09 Order name: Magnesium kdr 08/05 08:09 Order name: NT PRO-BNP kdr 08/05 08:09 Order name: PT-INR; Complete Time: 09:21 kdr 08/05 08:09 Order name: Troponin HS kdr 08/05 08:09 Order name: EKG; Complete Time: 08:09 kdr 08/05 08:09 Order name: Cardiac monitoring; Complete Time: 08:39 kdr 08/05 08:09 Order name: IV Saline Lock; Complete Time: 08:37 kdr 08/05 08:09 Order name: Labs collected and sent; Complete Time: 08:37 kdr 08/05 08:09 Order name: O2 Per Protocol; Complete Time: 08:18 kdr 08/05 08:09 Order name: O2 Sat Monitoring; Complete Time: 08:18 kdr 08/05 08:09 Order name: CT Traumagram (Head C Spine CAP wo con); Complete Time: 09:21 kdr 08/05 08:21 Order name: Misc. Order: Clean and dress wounds on elbows and elsewhere ; Complete kdr Time: 08:43 EC:26 Rate is 80 beats/min. Rhythm is irregularly irregular, A fib with Occasional PVCs. QRS kdr Isabella is Normal. IA interval is normal. QRS interval is normal. Clinical impression: Atrial Fibrillation. Administered Medications: No medications were administered Disposition Summary: 08/05/21 09:23 Discharge Ordered Location: Home kdr Problem: new kdr Symptoms: have improved kdr Condition: Stable kdr Diagnosis - Fall on same level, unspecified kdr - Abrasion of left elbow kdr Followup: kdr - With: Private Physician - When: 2 - 3 days - Reason: If symptoms return, Further diagnostic work-up, Recheck today's complaints, Continuance of care, Re-evaluation by your physician Discharge Instructions: - Discharge Summary Sheet kdr - Sterile Tape Wound Care kdr - Laceration Care, Adult, [id number] kdr - Fall Prevention in the Home, Adult, [id number] kdr - Understanding Your Risk for Falls kdr Forms: - Medication Reconciliation Form kdr - Thank You Letter kdr Signatures: Dispatcher [employer] Zack Marino MD MD kdr Kiah Rey RN RN ph
[2021-08-05 10:19] VITALS: BP 123/82; TEMP 98; O2SAT 100
[2021-08-05 14:00] LABS: Magnesium 1.5
[2021-08-05 14:01] LABS: NT PRO-BNP 2010
--- NOTE | 2021-08-06 09:02 | EKG ---
Test Date: 2021-08-05 Test Time: 08:37:39 Irrigation Manager: PH MEASUREMENT RESULTS: Intervals: Rate: 73 TX: QRSD: 148 QT: 426 QTc: 469 [place]: P: TX: QRS: -59 T: 100 INTERPRETIVE STATEMENTS: Atrial fibrillation with premature ventricular or aberrantly conducted complexes Left axis deviation Left ventricular hypertrophy with QRS widening Abnormal ECG Compared to ECG 04/15/2017 08:38:45 Ventricular premature complex(es) now present T-wave abnormality no longer present Possible ischemia no longer present Electronically Signed On 08-06-21 08:58:01 PAD CUTTER by Chip Ball
== END 2021-08-05 10:11 | disposition home or self-care (01) ==
LOC: ER 07:58
DX: S50.312A Abrasion of left elbow, initial encounter (principal); W06.XXXA Fall from bed, initial encounter; Y92.122 Bedroom in nursing home as the place of occurrence of the external cause; I10 Essential (primary) hypertension; I48.91 Unspecified atrial fibrillation; F03.90 Unspecified dementia, unspecified severity, without behavioral disturbance, psychotic disturbance, mood disturbance, and anxiety; I50.9 Heart failure, unspecified; Z79.01 Long term (current) use of anticoagulants
CPT/HCPCS: 36415; 70450; 71250; 72125; 80048; 80076; 83735; 83880; 84484; 85025; 85610; 93005; 99284